=== PATIENT | female | born 1970 | race African-American/Black ===

== ENCOUNTER 2016-10-20 20:22 | Emergency (ER) | payer MEDICAID, OTHER ==
[~2016-10-20] VITALS: Ht 172.7 cm; Wt 76.7 kg
[~2016-10-20 20:22] MED LIST: ASPIRIN81 MG ORAL; CIPRO500 MG PO; COREG6.25 MG ORAL; HYDROCHLOROTHIA25 MG ORAL; IBUPROFEN600 MG ORAL; NITROFURANTOIN100 M2 ORAL; NORCO 5-325 TA1 EACH ORAL; TRAZODONE HCL150 MG ORAL; TRILEPTAL150 MG ORAL; TRILEPTAL600 MG PO; ZANTAC150 MG ORAL
[2016-10-20] MEDS ORDERED: IBUPROFEN600 MG ORAL (21:24)
[2016-10-20] MEDS ORDERED: AMOXICILLIN500 MG ORAL (21:24)
[2016-10-20 21:39] VITALS: BP 138/100
[2016-10-20 21:41] VITALS: BP 138/100
--- NOTE | 2016-10-22 07:33 | Emergency Room Report ---
History of Present Illness General Chief Complaint: Sore Throat Source: Patient Present Illness HPI 46-year-old female presents to ED complaining of sore throat x2 days. Denies fevers or chills. Notes 5/10 pain burning, nonradiating. Worse with swallowing. Denies cough. Denies earache. States two coworkers were recently diagnosed with strep throat. Denies recent travel. No aggravating relieving factors. Denies any other associated symptoms Allergies: Coded Allergies: LISINOPRIL (Verified Allergy, Intermediate, 05/04/16) Patient History Past Medical History: HTN, CVA/TIA Past Surgical History: none Pertinent Family History: none Social History: Denies: alcohol use, drug use, smoking Now: No Immunizations: UTD Reviewed Nursing Documentation: PMH: Agreed, PSxH: Agreed Nursing Documentation-PMH Past Medical History: No History, Except For Hx Cardiac Problems: Yes Hx Hypertension: Yes Hx Diabetes: No Hx Cancer: No Hx Gastrointestinal Problems: No Hx Dialysis: No - KIDNEY STONES Hx Neurological Problems: No Hx Cerebrovascular Accident: Yes - 04/30 Hx Seizures: No Review of Systems All Other Systems: negative except mentioned in HPI Physical Exam Vital Signs Date Time Temp Pulse Resp B/P Pulse Ox O2 Delivery O2 Flow Rate FiO2 10/20/16 21:06 97.5 83 16 139/105 98 Room Air Sp02 EP Interpretation: reviewed, normal General Appearance: no apparent distress, alert, GCS 15, non-toxic Head: normocephalic Eyes: bilateral eye PERRL, bilateral eye normal inspection ENT: TMs + canals normal, pharyngeal erythema Neck: normal inspection Respiratory: chest non-tender, lungs clear, normal breath sounds, speaking full sentences Cardiovascular #1: normal inspection Gastrointestinal: normal inspection Rectal: deferred Genitourinary: no CVA tenderness Musculoskeletal: normal inspection Neurologic: alert, oriented x3, responsive, motor strength/tone normal, sensory intact, speech normal Psychiatric: normal inspection Skin: normal inspection Lymphatic: normal inspection Medical Decision Making Diagnostic Impression: Primary Impression: Pharyngitis Qualified Codes: J02.9 - Acute pharyngitis, unspecified ER Course Hospital Course 46-year-old female presents to ED complaining of sore throat Differential diagnoses include: URI, pharyngitis, otitis media Clinical course Patient placed on stretcher. After initial history, physical exam reveals a young male in no acute distress. Bilateral TM unremarkable. There is pharyngeal erythema w/o tonsillar exudates. No lymphadenopathy. Clinical findings consistent with pharyngitis. Reassurance given Diagnosis - pharyngitis Stable and discharged home with prescriptions for amoxicillin. Instructed to followup with PMD. return to ED if symptoms recur or worsen Last Vital Signs Date Time Temp Pulse Resp B/P Pulse Ox O2 Delivery O2 Flow Rate FiO2 10/20/16 21:41 97.5 68 16 138/100 98 Room Air Status: improved Disposition: HOME, SELF-CARE Condition: Stable Scripts Ibuprofen* (MOTRIN*) 600 Mg Tablet 600 MG ORAL Q8H Y for For Pain, #30 TAB 0 Refills Prov: MIKE WILLIAMSON M.D. 10/20/16 Amoxicillin* (AMOXIL*) 500 Mg Capsule 500 MG ORAL THREE TIMES A DAY, #21 CAP Prov: MIKE WILLIAMSON M.D. 10/20/16 Referrals: [facility]ERR[facility] (PCP) Patient Instructions: Pharyngitis, [id number] MIKE WILLIAMSON M.D. Oct 22, 2016 07:33
== END 2016-10-20 21:43 | disposition home or self-care (01) ==
LOC: EMR 21:20
DX: J02.9 Acute pharyngitis, unspecified (principal); I10 Essential (primary) hypertension; Z86.73 Personal history of transient ischemic attack (TIA), and cerebral infarction without residual deficits; Z88.8 Allergy status to other drugs, medicaments and biological substances
CPT/HCPCS: 99284

== ENCOUNTER 2017-04-20 08:07 | Emergency (ER) | payer OTHER ==
[~2017-04-20] VITALS: Ht 165.1 cm; Wt 88.9 kg
[~2017-04-20 08:07] MED LIST changes: +AMOXICILLIN500 MG ORAL
[2017-04-20] MEDS ORDERED: Morphine Sulfate 4mg/ml Inj IVP ONE (08:45)
[2017-04-20 09:09] LABS: APPEARANCE,URINE SLIGHTLY CLOUDY; KETONES,URINE 1+ (NEGATIVE); LEUKOCYTE ESTERASE ,URINE 2+ (NEGATIVE); NITRITE,URINE POSITIVE (NEGATIVE); PH,URINE 6 (4.5-8.0); PROTEIN,URINE 1+ (NEGATIVE); UROBILINOGEN,URINE 1 MG/DL (0.0-1.0)
[2017-04-20 09:20] LABS: BACTERIA,URINE MANY /HPF; SQUAMOUS EPITHELIAL CELL,UR FEW /LPF (NONE/OCC)
[2017-04-20 09:27] LABS: LYMPHOCYTES % (AUTO) 27.1 % (20.0-45.0); MEAN CORPUSCULAR HGB CONC 33.1 G/DL (32.0-36.0); MEAN CORPUSCULAR VOLUME 94 FL (80-99); MEAN PLATELET VOLUME 6.5 FL (6.5-10.1); MONOCYTES % (AUTO) 3.7 % (1.0-10.0); NEUTROPHILS % (AUTO) 67.2 % (45.0-75.0); PLATELET COUNT 302 K/UL (150-450); RED BLOOD COUNT 4.86 M/UL (4.20-5.40); RED CELL DISTRIBUTION WIDTH 11.3 % (11.6-14.8); WHITE BLOOD COUNT 8.1 K/UL (4.8-10.8)
[2017-04-20 09:40] LABS: ALANINE AMINOTRANSFERASE 54 U/L (3-33); ALBUMIN/GLOBULIN RATIO 1.2 (1.0-2.7); ANION GAP 14 (5-15); ASPARTATE AMINO TRANSFERASE 56 U/L (5-40); CALCIUM 9.6 mg/dL (8.6-10.2); CARBON DIOXIDE 25 mEQ/L (20-30); CHLORIDE 97 mEQ/L (98-107); CREATININE 0.8 mg/dL (0.5-0.9); GLOMERULAR FILTRATION RATE > 60 mL/min (>60); HEMOLYSIS 8; LIPASE 27 U/L (< 60); POTASSIUM 3.9 mEQ/L (3.4-4.9); SODIUM 136 mEQ/L (135-145); TOTAL PROTEIN 7.6 g/dL (6.6-8.7)
[2017-04-20 09:55] LABS: BILIRUBIN,DIRECT 0.3 mg/dL (0.1-0.3)
--- NOTE | 2017-04-20 11:34 | Diagnostic Imaging Report ---
Indication: Abdominal pain Technique: Continuous helical transaxial imaging of the abdomen and pelvis was obtained from the lung bases to the pubic symphysis during intravenous contrast administration. Coronal 2-D reformats were also obtained. Study obtained in a Siemens sensation [address] Total Dose length Product (DLP): 09/20/[address] Dose Index Volume (CTDIvol): 19, 20 mGy Comparison: 07/30/13 Findings: There is mild subsegmental, linear right basal atelectasis noted. Small hiatal hernia is present. The liver is mildly hypodense consistent with fatty infiltration. Fairly extensive scarring of the upper pole the right kidney is again demonstrated with focal loss of cortex and slight dilatation of the right upper pole calyces. Normal appendix is demonstrated. Gallbladder is unremarkable. The spleen and pancreas, adrenal glands appear normal. No free fluid or free air identified. Uterus is present. There is some prominence of the central part of the upper cervix. Please correlate clinically. This could be a small amount of blood or fluid within the endocervical canal or adjacent cervical os. This finding was also seen previously in 2013. Impression: Moderate fatty liver. Low-attenuation focus in the area of endocervical canal. This could be a small amount of fluid or blood within the endocervical canal, a prominent nabothian cyst within the cervical os or other lesion. Finding is unchanged from 2013. Endovaginal ultrasound may be helpful and suggested as a follow up as part of a clinical sample steamer referral and evaluation. Scarring in the upper pole the right kidney unchanged from the last exam. Normal appendix Minimal right basal atelectasis The CT scanner at [facility] is accredited by the [employer] and the scans are performed using dose optimization techniques as appropriate to a performed exam including Automatic Exposure control.
[2017-04-20] MEDS ORDERED: Cephalexin 500mg cap ORAL ONE (11:45)
[2017-04-20] MEDS ORDERED: TRAMADOL HCL50 MG ORAL (12:02)
[2017-04-20] MEDS ORDERED: KEFLEX500 MG ORAL (12:02)
[2017-04-20 12:26] VITALS: BP 138/82
--- NOTE | 2017-04-20 14:31 | Emergency Room Report ---
History of Present Illness General Chief Complaint: Lower Back Pain or Injury Source: Patient Present Illness HPI 47-year-old female presents to ED for evaluation. States for one day she is having abdominal pain. Pain is localized right upper quadrant and left-sided abdomen. Sharp. 9/10. Nonradiating. She has history of kidney stones. Denies dysuria or hematuria. Denies fevers or chills. Eyes nausea or vomiting. No other aggravating or relieving factors. Denies any other associated symptoms Allergies: Coded Allergies: LISINOPRIL (Verified Allergy, Intermediate, 05/04/16) Patient History Past Medical History: CVA/TIA Past Surgical History: none Pertinent Family History: none Social History: Denies: alcohol use, drug use, smoking Last Menstrual Period: 04/13/17 Now: No Immunizations: UTD Reviewed Nursing Documentation: PMH: Agreed, PSxH: Agreed Nursing Documentation-PMH Hx Cardiac Problems: Yes - ID Hx Hypertension: Yes Hx Diabetes: No Hx Cancer: No Hx Gastrointestinal Problems: No Hx Dialysis: No - KIDNEY STONES Hx Neurological Problems: No Hx Cerebrovascular Accident: Yes - 04/30 Hx Seizures: No Review of Systems All Other Systems: negative except mentioned in HPI Physical Exam Vital Signs Date Time Temp Pulse Resp B/P Pulse Ox O2 Delivery O2 Flow Rate FiO2 04/20/17 08:23 98.1 78 16 126/64 97 Room Air Sp02 EP Interpretation: reviewed, normal General Appearance: no apparent distress, alert, GCS 15, non-toxic Head: normocephalic, atraumatic Eyes: bilateral eye PERRL, bilateral eye normal inspection ENT: hearing grossly normal, normal pharynx, no angioedema, normal voice Neck: full range of motion, supple/symm/no masses Respiratory: chest non-tender, lungs clear, normal breath sounds, speaking full sentences Cardiovascular #1: regular rate, rhythm, no edema Cardiovascular #2: 2+ carotid (R), 2+ carotid (L), 2+ radial (R), 2+ radial (L) , 2+ dorsalis pedis (R), 2+ dorsalis pedis (L) Gastrointestinal: normal bowel sounds, soft, non-distended, no guarding, no rebound, tenderness - RUQ, LLQ Rectal: deferred Genitourinary: normal inspection, no CVA tenderness Musculoskeletal: back normal, gait/station normal, normal range of motion, non- tender Neurologic: alert, oriented x3, responsive, motor strength/tone normal, sensory intact, speech normal Psychiatric: judgement/insight normal, memory normal, mood/affect normal, no suicidal/homicidal ideation Reflexes: 3+ bicep (R), 3+ bicep (L), 3+ tricep (R), 3+ tricep (L), 3+ knee (R) , 3+ knee (L) Skin: normal color, no rash, warm/dry, well hydrated Lymphatic: no adenopathy Medical Decision Making Diagnostic Impression: Primary Impression: Fatty liver Additional Impression: uti ER Course Hospital Course 47-year-old F presents to ED with abdominal pain Differential diagnosis includes-appendicitis, cholecystitis, small bowel obstruction, gastritis, Clinical course Patient placed on stretcher. After initial history and physical I ordered labs , IV fluids, pain medications and CT scan Labs - no leukocytosis, electrolytes ok, LFTs normal, UA + bacteria CT scan shows no acute pathology, fatty liver Upon reassessment, patient states pain has improved. Given improvement in symptoms and lack of acute findings, I believe patient can be safely discharged to home. Patient agrees with plan given keflex in ED I feel this is a highly complex case requiring extensive working including EKG/ Rhythm strip, Xray/CT/US, Blood/urine lab work, repeat exams while in ED, and administration of strong opiates/narcotics for pain control, admission to hospital or close patient follow up. Diagnosis - fatty liver, UTI Stable and discharged to home with Rx Keflex, tramadol. Followup with PMD. Return to ED if symptoms recur or worsen Labs Test 04/20/17 08:30 04/20/17 09:00 Urine Color Yellow Urine Appearance Slightly cloudy Urine pH 6 (4.5-8.0) Urine Specific [place] 1.020 (1.005-1.035) Urine Protein 1+ (NEGATIVE) Urine Glucose (UA) Negative (NEGATIVE) Urine Ketones 1+ (NEGATIVE) Urine Occult Blood 2+ (NEGATIVE) Urine Nitrite Positive (NEGATIVE) Urine Bilirubin Negative (NEGATIVE) Urine Urobilinogen 1 MG/DL (0.0-1.0) Urine Leukocyte Esterase 2+ (NEGATIVE) Urine RBC 2-4 /HPF (0 - 2) Urine WBC 5-10 /HPF (0 - 2) Urine Squamous Epithelial Cells Few /LPF (NONE/OCC) Urine Bacteria Many /HPF (NONE) Urine HCG, Qualitative Negative White Blood Count 8.1 K/UL (4.8-10.8) Red Blood Count 4.86 M/UL (4.20-5.40) Hemoglobin 15.1 G/DL (12.0-16.0) Hematocrit 45.5 % (37.0-47.0) Mean Corpuscular Volume 94 FL (80-99) Mean Corpuscular Hemoglobin 31.0 PG (27.0-31.0) Mean Corpuscular Hemoglobin Concent 33.1 G/DL (32.0-36.0) Red Cell Distribution Width 11.3 % (11.6-14.8) Platelet Count 302 K/UL (150-450) Mean Platelet Volume 6.5 FL (6.5-10.1) Neutrophils (%) (Auto) 67.2 % (45.0-75.0) Lymphocytes (%) (Auto) 27.1 % (20.0-45.0) Monocytes (%) (Auto) 3.7 % (1.0-10.0) Eosinophils (%) (Auto) 1.0 % (0.0-3.0) Basophils (%) (Auto) 1.0 % (0.0-2.0) Sodium Level 136 mEQ/L (135-145) Potassium Level 3.9 mEQ/L (3.4-4.9) Chloride Level 97 mEQ/L (98-107) Carbon Dioxide Level 25 mEQ/L (20-30) Anion Gap 14 (5-15) Blood Urea Nitrogen 7 mg/dL (7-23) Creatinine 0.8 mg/dL (0.5-0.9) Estimat Glomerular Filtration Rate > 60 mL/min (>60) Glucose Level 114 mg/dL (74-106) Calcium Level 9.6 mg/dL (8.6-10.2) Total Bilirubin 1.6 mg/dL (0.0-1.2) Direct Bilirubin 0.3 mg/dL (0.1-0.3) Aspartate Amino Transf (AST/SGOT) 56 U/L (5-40) Alanine Aminotransferase (ALT/SGPT) 54 U/L (3-33) Alkaline Phosphatase 56 U/L (35-104) Total Protein 7.6 g/dL (6.6-8.7) Albumin 4.2 g/dL (3.5-5.2) Globulin 3.4 g/dL Albumin/Globulin Ratio 1.2 (1.0-2.7) Lipase 27 U/L (< 60) CT/MRI/US Diagnostic Results CT/MRI/US Diagnostic Results : Imaging Test Ordered: CT A/P Impression fatty liver. no acute process identified Last Vital Signs Date Time Temp Pulse Resp B/P Pulse Ox O2 Delivery O2 Flow Rate FiO2 04/20/17 12:26 81 16 138/82 98 Room Air 04/20/17 09:35 98.0 Status: improved Disposition: HOME, SELF-CARE Condition: Stable Scripts Cephalexin* (KEFLEX*) 500 Mg Capsule 500 MG ORAL Q6H, #28 CAP 0 Refills Prov: MIKE WILLIAMSON M.D. 04/20/17 Tramadol Hcl* (ULTRAM*) 50 Mg Tablet 50 MG ORAL Q6H Y for For Pain, #30 TAB 0 Refills Prov: MIKE WILLIAMSON M.D. 04/20/17 Patient Instructions: Fatty Liver MIKE WILLIAMSON M.D. Apr 20, 2017 14:31
== END 2017-04-20 12:27 | disposition home or self-care (01) ==
LOC: EMR 08:48
DX: K76.0 Fatty (change of) liver, not elsewhere classified (principal); N39.0 Urinary tract infection, site not specified; I10 Essential (primary) hypertension; Z86.73 Personal history of transient ischemic attack (TIA), and cerebral infarction without residual deficits
CPT/HCPCS: 36415; 74177; 80053; 81003; 81025; 82248; 83690; 85025; 87086; 87181; 96374; 99284; J2270; J7040; Q9967; 96360

== ENCOUNTER → 2017-11-12 | Emergency (ER) | payer OTHER ==
[~2017-11-12] VITALS: Ht 167.6 cm; Wt 88.5 kg
[~2017-11-12] MED LIST changes: +Dicyclomine HCl 10mg/5ml oral soln ORAL ONE; +KEFLEX500 MG ORAL; +Ketorolac 30mg Inj IV ONE; +Morphine Sulfate 2mg/ml Inj IVP ONE; +PEPCID20 MG ORAL; +REGLAN10 MG ORAL; +TAMSULOSIN HCL0.4 MG ORAL; +TRAMADOL HCL50 MG ORAL
[2017-11-12 09:00] VITALS: BP 140/80
[2017-11-12 09:00] LABS: APPEARANCE,URINE CLEAR; BILIRUBIN, URINE NEGATIVE (NEGATIVE); COLOR,URINE PALE YELLOW; GLUCOSE, URINE (UA) NEGATIVE (NEGATIVE); KETONES,URINE NEGATIVE (NEGATIVE); LEUKOCYTE ESTERASE ,URINE NEGATIVE (NEGATIVE); NITRITE,URINE NEGATIVE (NEGATIVE); PH,URINE 5 (4.5-8.0); PROTEIN,URINE NEGATIVE (NEGATIVE); UROBILINOGEN,URINE NORMAL MG/DL (0.0-1.0)
--- NOTE | 2017-11-12 09:02 | Emergency Room Report ---
History of Present Illness General Chief Complaint: Abdominal Pain Source: Patient Present Illness HPI [id number] with lower abd pain for 2 weeks. assoc with some nausea and "soft stool." Pain is suprapubic, right lower abdomen. Sharp, constant. Not radiating. 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 had nitrite+ UTI and fatty liver on ED visit in April 2017 History of kidney stones Allergies: Coded Allergies: LISINOPRIL (Verified Allergy, Intermediate, 05/04/16) Patient History Past Medical History: HTN, other - fatty liver Past Surgical History: none Pertinent Family History: none Social History: Denies: smoking, alcohol use, drug use Now: No Immunizations: UTD Reviewed Nursing Documentation: PMH: Agreed, PSxH: Agreed Nursing Documentation-PMH Hx Cardiac Problems: Yes - [place] Hx Hypertension: Yes Hx Diabetes: No Hx Cancer: No Hx Gastrointestinal Problems: No Hx Dialysis: No - KIDNEY STONES Hx Neurological Problems: No Hx Cerebrovascular Accident: Yes - 04/30 Hx Seizures: No Review of Systems All Other Systems: negative except mentioned in HPI Physical Exam Vital Signs Date Time Temp Pulse Resp B/P (MAP) Pulse Ox O2 Delivery O2 Flow Rate FiO2 11/12/17 08:45 98.0 80 13 140/80 98 Room Air 98.1 Sp02 EP Interpretation: reviewed, normal General Appearance: normal inspection, well appearing, no apparent distress, alert, GCS 15, non-toxic, obese Head: normocephalic, atraumatic Eyes: bilateral eye PERRL, bilateral eye EOMI ENT: normal ENT inspection, hearing grossly normal, normal pharynx, no angioedema, normal voice, TMs + canals normal, uvula midline, moist mucus membranes Neck: normal inspection, full range of motion, supple, thyroid normal, no meningismus, no bony tend Respiratory: normal inspection, lungs clear, normal breath sounds, no rhonchi, no respiratory distress, no retraction, no accessory muscle use, no wheezing, speaking full sentences Cardiovascular #1: regular rate, rhythm, no edema, no JVD, normal capillary refill Gastrointestinal: normal inspection, normal bowel sounds, soft, no mass, no peritonitis, non-distended, no guarding, no hernia, no pulsatile mass, other - Mild right LQ and suprapubic ttp Genitourinary: no CVA tenderness Musculoskeletal: normal inspection, back normal, normal range of motion, no calf tenderness, pelvis stable, Pascual's Sign negative Neurologic: normal inspection, alert, oriented x3, responsive, cpr ambulance driver III-XII nml as tested, motor strength/tone normal, cerebellar normal, normal gait, speech normal Psychiatric: normal inspection, judgement/insight normal, mood/affect normal, no suicidal/homicidal ideation, no delusions Skin: normal inspection, normal color, no rash Lymphatic: normal inspection, no adenopathy Medical Decision Making Diagnostic Impression: Primary Impression: Abdominal pain Qualified Codes: R10.30 - Lower abdominal pain, unspecified Additional Impression: Hematuria Qualified Codes: R31.21 - Asymptomatic microscopic hematuria ER Course VSS, afebrile Abd focal ttp RLQ, suprapubic Urine preg negative UA: + blood. few bacteria, 0-2 WBCs Labs: H&H stable. No leukocytosis. Low suspicion for acute bacterial/surgical process given 2 weeks of symptoms, stable vitals, well appearance, no leuks Ultrasound done to eval for renal calculus given hematuria and alleged history of renal stones AND because I and patient wished to avoid further radiation since she was just scanned in April Sono: shows fatty liver - previously seen on CT, and scarring of kidneys, also previously seen. No hydronephrosis or other sign of renal obstruction Was given IV toradol, fluid and bentyl/reglan with mild improvement in symptoms Only felt better after IV morphine Abdomen on serial exam is non-focal Really doubt UTI given no symptoms, few bacteria only on UA and no LE. Reassured patient DC ER course: Patient has remained stable during ED stay. Disposition: Patient is to be discharged to home. Prescriptions given are * Patient is instructed to follow up with their primary care doctor within 5 days. Patient is instructed to follow up with *specialist within 3 days. Strict return precautions discussed with patient such as fever, chills, worsening/severe pain, nausea, vomiting, which may indicate severe illness. Patient verbalizes understanding and agrees with plan. Please note that this Emergency Department Report was dictated using [employer] regulator repairer helper technology software, occasionally this can lead to erroneous entry secondary to interpretation by the dictation equipment Rhythm Strip Diag. Results EP Interpretation: yes Rate: 85 Rhythm: NSR, no PVC's, no ectopy Last Vital Signs Date Time Temp Pulse Resp B/P (MAP) Pulse Ox O2 Delivery O2 Flow Rate FiO2 11/12/17 08:45 98.0 80 13 140/80 98 Room Air 98.1 Status: improved Disposition: HOME, SELF-CARE JOSE ALFREDO DARDEN M.D. Nov 12, 2017 09:02
[2017-11-12 09:52] LABS: BASOPHILS % (AUTO) 1.4 % (0.0-2.0); HEMATOCRIT 43.1 % (37.0-47.0); HEMOGLOBIN 14.4 G/DL (12.0-16.0); LYMPHOCYTES % (AUTO) 31.1 % (20.0-45.0); MEAN CORPUSCULAR VOLUME 92 FL (80-99); MONOCYTES % (AUTO) 5.7 % (1.0-10.0); NEUTROPHILS % (AUTO) 60.8 % (45.0-75.0); PLATELET COUNT 289 K/UL (150-450); RED BLOOD COUNT 4.67 M/UL (4.20-5.40); RED CELL DISTRIBUTION WIDTH 10.9 % (11.6-14.8); WHITE BLOOD COUNT 7.1 K/UL (4.8-10.8)
[2017-11-12 10:03] LABS: ANION GAP 12 mmol/L (5-15); BLOOD UREA NITROGEN 7 mg/dL (7-18); CALCIUM 8.8 MG/DL (8.5-10.1); CARBON DIOXIDE 24 MMOL/L (21-32); CHLORIDE 104 MMOL/L (98-107); CREATININE 0.7 MG/DL (0.55-1.30); SODIUM 140 MMOL/L (136-145)
[2017-11-12 10:08] LABS: ALANINE AMINOTRANSFERASE 49 U/L (12-78); ALBUMIN 3.3 G/DL (3.4-5.0); ALBUMIN/GLOBULIN RATIO 0.8 (1.0-2.7); ALKALINE PHOSPHATASE 55 U/L (46-116); ASPARTATE AMINO TRANSFERASE 42 U/L (15-37); BILIRUBIN,TOTAL 0.7 MG/DL (0.2-1.0)
[2017-11-12 10:32] VITALS: BP 151/75
[2017-11-12 11:41] VITALS: BP 151/75
--- NOTE | 2017-11-13 10:20 | Diagnostic Imaging Report ---
Indication:Abdominal pain Technique: Grayscale and duplex Doppler imaging of the abdomen performed. Comparison: None Findings: Liver is echogenic and prominent measuring about 18 cm. Gallbladder is contracted. Patient is not nothing by mouth. The demonstrated part of the pancreas, aorta and IVC, spleen appear unremarkable. There is no biliary ductal dilatation identified. Doppler evaluation of the main portal vein shows patency. There is the suggestion of scarring in the upper pole of the right kidney. Left kidney is unremarkable. There is no ascites. No hydronephrosis seen. Impression: Hepatomegaly with fatty infiltration. Suggestion of scarring in the upper pole the right kidney. Gallbladder contracted
== END | disposition home or self-care (01) ==
LOC: EMR 09:00
DX: R10.31 Right lower quadrant pain (principal); R31.9 Hematuria, unspecified; I10 Essential (primary) hypertension; Z86.73 Personal history of transient ischemic attack (TIA), and cerebral infarction without residual deficits; I25.2 Old myocardial infarction; Z88.8 Allergy status to other drugs, medicaments and biological substances; K76.0 Fatty (change of) liver, not elsewhere classified; R16.0 Hepatomegaly, not elsewhere classified
CPT/HCPCS: 36415; 76700; 80053; 81003; 81025; 83690; 85025; 96374; 96375; 99284; J1885; J2270; J2405; S0028

== ENCOUNTER 2017-11-13 09:31 | Emergency (ER) | payer OTHER ==
[~2017-11-13] VITALS: Ht 165.1 cm; Wt 86.2 kg
[~2017-11-13 09:31] MED LIST changes: -Dicyclomine HCl 10mg/5ml oral soln ORAL ONE; -Ketorolac 30mg Inj IV ONE; -Morphine Sulfate 2mg/ml Inj IVP ONE; -TAMSULOSIN HCL0.4 MG ORAL
[2017-11-13 09:45] VITALS: BP 180/84
[2017-11-13 10:10] VITALS: BP 160/84
[2017-11-13 10:21] LABS: BASOPHILS % (AUTO) 1.5 % (0.0-2.0); EOSINOPHILS % (AUTO) 1.3 % (0.0-3.0); HEMOGLOBIN 15.1 G/DL (12.0-16.0); LYMPHOCYTES % (AUTO) 33.3 % (20.0-45.0); MEAN CORPUSCULAR VOLUME 93 FL (80-99); NEUTROPHILS % (AUTO) 58.9 % (45.0-75.0); PLATELET COUNT 294 K/UL (150-450); RED BLOOD COUNT 4.87 M/UL (4.20-5.40); RED CELL DISTRIBUTION WIDTH 11.1 % (11.6-14.8); WHITE BLOOD COUNT 6.8 K/UL (4.8-10.8)
[2017-11-13 10:24] LABS: APPEARANCE,URINE CLEAR; BILIRUBIN, URINE NEGATIVE (NEGATIVE); COLOR,URINE PALE YELLOW; GLUCOSE, URINE (UA) NEGATIVE (NEGATIVE); KETONES,URINE NEGATIVE (NEGATIVE); LEUKOCYTE ESTERASE ,URINE NEGATIVE (NEGATIVE); NITRITE,URINE NEGATIVE (NEGATIVE); PH,URINE 5 (4.5-8.0); PROTEIN,URINE 2+ (NEGATIVE); UROBILINOGEN,URINE NORMAL MG/DL (0.0-1.0)
--- NOTE | 2017-11-13 10:31 | Emergency Room Report ---
History of Present Illness General Chief Complaint: Abdominal Pain Source: Patient Present Illness HPI 47 F, no significant past medical history, presenting with right-sided abdominal pain for one and a half weeks. Patient states that she has had the pain come and go. No nausea vomiting or diarrhea. No constipation. No abnormal vaginal bleeding or discharge. No risk of having an STD. Patient states that she came to the emergency room yesterday, had labs and sonogram done , was sent home. Patient now back still complaining of pain. States that she tried to get up and with her doctor but it takes a long time to get an appointment. Allergies: Coded Allergies: LISINOPRIL (Verified Allergy, Intermediate, 05/04/16) Patient History Past Medical History: see triage record Past Surgical History: none Pertinent Family History: none Last Menstrual Period: Oct 29 Now: No : 6 Para: 5 Reviewed Nursing Documentation: PMH: Agreed, PSxH: Agreed Nursing Documentation-PMH Past Medical History: No History, Except For Hx Hypertension: Yes Hx Diabetes: No Hx Cancer: No Hx Gastrointestinal Problems: No Hx Dialysis: No - KIDNEY STONES Hx Neurological Problems: No Hx Cerebrovascular Accident: Yes - 04/30 Hx Seizures: No Physical Exam Vital Signs Date Time Temp Pulse Resp B/P (MAP) Pulse Ox O2 Delivery O2 Flow Rate FiO2 11/13/17 09:34 98.1 71 16 180/84 97 Room Air 98.1 Sp02 EP Interpretation: reviewed, normal General Appearance: alert, GCS 15, non-toxic, mild distress Head: normocephalic, atraumatic Eyes: bilateral eye normal inspection, bilateral eye PERRL, bilateral eye EOMI ENT: normal ENT inspection, normal pharynx, normal voice, moist mucus membranes Neck: normal inspection, full range of motion, supple Respiratory: normal inspection, lungs clear, normal breath sounds, no respiratory distress, no retraction, no wheezing, speaking full sentences, chest symmetrical Cardiovascular #1: normal inspection, regular rate, rhythm, normal capillary refill Cardiovascular #2: 2+ radial (R), 2+ radial (L) Gastrointestinal: soft, non-distended, no guarding, other - very mild RLQ tenderness no guarding or rebound. normal BS Musculoskeletal: normal inspection, back normal, normal range of motion, non- tender Neurologic: normal inspection, alert, oriented x3, responsive, motor strength/ tone normal, sensory intact, normal gait, speech normal Psychiatric: normal inspection, judgement/insight normal, memory normal Skin: normal inspection, normal color, no rash, warm/dry, well hydrated, normal turgor Medical Decision Making Diagnostic Impression: Primary Impression: Abdominal pain Additional Impressions: Nephrolithiasis Cystitis ER Course 47-year-old female, abdominal pain for one and a half weeks, worse for the last 2 days Patient was seen yesterday, had labs drawn, a sonogram that was negative Differential Diagnosis: Gastritis, gastroenteritis, cholecystitis, appendicitis, diverticulitis, UTI/ pyelo Ovarian pathology such as ovarian cyst, versus uterine fibroids Not very concerned that patient is having ovarian torsion, and symptoms for 2 weeks Plan: Basic labs, ua CT abdopelvis ER course: Patient has remained stable during ED stay. CT abdomen pelvis performed - stones non obstructing in R kidney also with cystitis on CT --- occassional bacteria on UA pt has been stable can be DC home on meds and urology fu Disposition: Patient is to be discharged to home. Patient is instructed to follow up with their primary care doctor within 5 days. Patient is instructed to follow up with urology in 1 week Strict return precautions discussed with patient such as fever, chills, worsening/severe abdominal pain, nausea, vomiting, black or bloody stools, which may indicate severe illness. Patient verbalizes understanding and agrees with plan. Please note that this Emergency Department Report was dictated using vLexback end developer technology software, occasionally this can lead to erroneous entry secondary to interpretation by the dictation equipment Rhythm Strip EP Interpretation: Yes Rate: 80 Rhythm: NSR, no PVCs, no ectopy Laboratory Tests Test 11/13/17 10:00 11/13/17 10:01 Urine Color Pale yellow Urine Appearance Clear Urine pH 5 (4.5-8.0) Urine Specific [place] 1.020 (1.005-1.035) Urine Protein 2+ (NEGATIVE) H Urine Glucose (UA) Negative (NEGATIVE) Urine Ketones Negative (NEGATIVE) Urine Occult Blood Negative (NEGATIVE) Urine Nitrite Negative (NEGATIVE) Urine Bilirubin Negative (NEGATIVE) Urine Urobilinogen Normal MG/DL (0.0-1.0) Urine Leukocyte Esterase Negative (NEGATIVE) Urine RBC 0-2 /HPF (0 - 2) Urine WBC 0-2 /HPF (0 - 2) Urine Squamous Epithelial Cells Moderate /LPF (NONE/OCC) H Urine Bacteria Occasional /HPF (NONE) Urine HCG, Qualitative Negative White Blood Count 6.8 K/UL (4.8-10.8) Red Blood Count 4.87 M/UL (4.20-5.40) Hemoglobin 15.1 G/DL (12.0-16.0) Hematocrit 45.0 % (37.0-47.0) Mean Corpuscular Volume 93 FL (80-99) Mean Corpuscular Hemoglobin 31.0 PG (27.0-31.0) Mean Corpuscular Hemoglobin Concent 33.5 G/DL (32.0-36.0) Red Cell Distribution Width 11.1 % (11.6-14.8) L Platelet Count 294 K/UL (150-450) Mean Platelet Volume 6.7 FL (6.5-10.1) Neutrophils (%) (Auto) 58.9 % (45.0-75.0) Lymphocytes (%) (Auto) 33.3 % (20.0-45.0) Monocytes (%) (Auto) 5.0 % (1.0-10.0) Eosinophils (%) (Auto) 1.3 % (0.0-3.0) Basophils (%) (Auto) 1.5 % (0.0-2.0) Sodium Level 138 MMOL/L (136-145) Potassium Level 4.1 MMOL/L (3.5-5.1) Chloride Level 102 MMOL/L (98-107) Carbon Dioxide Level 25 MMOL/L (21-32) Anion Gap 11 mmol/L (5-15) Blood Urea Nitrogen 9 mg/dL (7-18) Creatinine 0.8 MG/DL (0.55-1.30) Estimate Glomerular Filtration Rate > 60 mL/min (>60) Glucose Level 92 MG/DL (74-106) Calcium Level 9.2 MG/DL (8.5-10.1) Total Bilirubin 0.8 MG/DL (0.2-1.0) Aspartate Amino Transferase (AST) 41 U/L (15-37) H Alanine Aminotransferase (ALT) 52 U/L (12-78) Alkaline Phosphatase 68 U/L (46-116) Total Protein 8.1 G/DL (6.4-8.2) Albumin 3.6 G/DL (3.4-5.0) Globulin 4.5 g/dL Albumin/Globulin Ratio 0.8 (1.0-2.7) L CT/MRI/US Diagnostic Results CT/MRI/US Diagnostic Results : Imaging Test Ordered: CT abdo pelvis Impression Findings: Small hiatal hernia is present. There is minimal right basilar atelectasis. The liver is hypodense consistent with fatty infiltration. Gallbladder is contracted. Spleen is unremarkable. The pancreas is unremarkable. Adrenal glands are unremarkable. There is irregularity and atrophy of the upper pole the right kidney as well as the anterior mid pole consistent with scarring. There are calcifications in the right kidney likely small nonobstructive stones the level of the calyces. There is no hydronephrosis. Similar findings noted previously. The appendix is identified and appears normal. There is slight thickening of the urinary bladder wall suspected. Uterus is mildly heterogeneous. There is no free fluid, free air or evidence of bowel obstruction. IMPRESSION: Moderate fatty infiltration of the liver. Multiple nonobstructive stones within the right kidney which show areas of scarring. Suggestion of mild thickening of the wall of the urinary bladder. Please correlate for cystitis. Normal appendix Small hiatal hernia Minimal right basal atelectasis. Last Vital Signs Date Time Temp Pulse Resp B/P (MAP) Pulse Ox O2 Delivery O2 Flow Rate FiO2 11/13/17 10:10 98.1 16 160/84 97 Room Air 98.1 11/13/17 09:34 71 Disposition: HOME, SELF-CARE Condition: Improved Scripts Ibuprofen* (MOTRIN*) 600 Mg Tablet 600 MG ORAL Q6H Y for For Pain, #30 TAB Prov: Retino,Clairose M.D. 11/13/17 Cephalexin* (KEFLEX*) 500 Mg Capsule 500 MG ORAL Q6H, #28 CAP 0 Refills Prov: Retino,Clairose M.D. 11/13/17 Tamsulosin Hcl (TAMSULOSIN HCL*) 0.4 Mg Cap.er.24h 0.4 MG ORAL BEDTIME for 7 Days, #7 CAP Prov: Retino,Clairose M.D. 11/13/17 Referrals: [facility],REFERRING (PCP) Patient Instructions: Abdominal Pain, Adult, Kidney Stones, [id number], Urinary Tract Infection, [id number] Retino,Johan Bardales Nov 13, 2017 10:31
[2017-11-13 10:43] LABS: ANION GAP 11 mmol/L (5-15); BLOOD UREA NITROGEN 9 mg/dL (7-18); CALCIUM 9.2 MG/DL (8.5-10.1); CARBON DIOXIDE 25 MMOL/L (21-32); CHLORIDE 102 MMOL/L (98-107); CREATININE 0.8 MG/DL (0.55-1.30); POTASSIUM 4.1 MMOL/L (3.5-5.1); SODIUM 138 MMOL/L (136-145)
[2017-11-13 10:48] LABS: ALANINE AMINOTRANSFERASE 52 U/L (12-78); ALBUMIN 3.6 G/DL (3.4-5.0); ALBUMIN/GLOBULIN RATIO 0.8 (1.0-2.7); ALKALINE PHOSPHATASE 68 U/L (46-116); ASPARTATE AMINO TRANSFERASE 41 U/L (15-37); BILIRUBIN,TOTAL 0.8 MG/DL (0.2-1.0)
[2017-11-13] MEDS ORDERED: Ketorolac 30mg Inj IV ONE (11:15)
--- NOTE | 2017-11-13 11:26 | Diagnostic Imaging Report ---
Indication: Abdominal pain Technique: Continuous helical transaxial imaging of the abdomen and pelvis was obtained from the lung bases to the pubic symphysis during intravenous contrast administration. Coronal 2-D reformats were also obtained. Study obtained in a Siemens sensation [address] Automatic Exposure Control was utilized. Total Dose length Product (DLP): 966.[address] Dose Index Volume (CTDIvol): 18.4 mGy Comparison: 04/20/2017 Findings: Small hiatal hernia is present. There is minimal right basilar atelectasis. The liver is hypodense consistent with fatty infiltration. Gallbladder is contracted. Spleen is unremarkable. The pancreas is unremarkable. Adrenal glands are unremarkable. There is irregularity and atrophy of the upper pole the right kidney as well as the anterior mid pole consistent with scarring. There are calcifications in the right kidney likely small nonobstructive stones the level of the calyces. There is no hydronephrosis. Similar findings noted previously. The appendix is identified and appears normal. There is slight thickening of the urinary bladder wall suspected. Uterus is mildly heterogeneous. There is no free fluid, free air or evidence of bowel obstruction. IMPRESSION: Moderate fatty infiltration of the liver. Multiple nonobstructive stones within the right kidney which show areas of scarring. Suggestion of mild thickening of the wall of the urinary bladder. Please correlate for cystitis. Normal appendix Small hiatal hernia Minimal right basal atelectasis. [place] [facility] [place] [employer] and the scans are performed using dose optimization techniques as appropriate to a performed exam including Automatic Exposure control.
[2017-11-13] MEDS ORDERED: IBUPROFEN600 MG ORAL (11:32)
[2017-11-13] MEDS ORDERED: KEFLEX500 MG ORAL (11:32)
[2017-11-13] MEDS ORDERED: TAMSULOSIN HCL0.4 MG ORAL (11:32)
[2017-11-13 11:44] VITALS: BP 143/77
== END 2017-11-13 11:53 | disposition home or self-care (01) ==
LOC: EMR 10:15
DX: R10.9 Unspecified abdominal pain (principal); N20.0 Calculus of kidney; K76.0 Fatty (change of) liver, not elsewhere classified; K44.9 Diaphragmatic hernia without obstruction or gangrene
CPT/HCPCS: 36415; 74177; 80053; 81001; 81025; 85025; 96374; 96375; 99284; J1885; J2405; Q9967

== ENCOUNTER 2019-01-09 08:40 | Emergency (ER) | payer SELFPAY ==
[~2019-01-09] VITALS: Ht 165.1 cm; Wt 108.9 kg
[~2019-01-09 08:40] MED LIST changes: +TAMSULOSIN HCL0.4 MG ORAL
[2019-01-09 09:00] VITALS: BP 158/91
--- NOTE | 2019-01-09 09:01 | NUR ---
ED Nurse Note:pt. came with right abd pain since this morning, A/Ox4 ambulatory with steady gait, seen by ER
[2019-01-09] MEDS ORDERED: Morphine Sulfate 4mg/ml Inj (IV USE ONLY) IVP ONE (09:15)
--- NOTE | 2019-01-09 09:26 | NUR ---
ED Nurse Note:blood and urine sent to labs and given IV fluids and pain meds
[2019-01-09 09:36] LABS: BASOPHILS % (AUTO) 1.4 % (0.0-2.0); EOSINOPHILS % (AUTO) 1.2 % (0.0-3.0); HEMOGLOBIN 14.1 G/DL (12.0-16.0); LYMPHOCYTES % (AUTO) 30.8 % (20.0-45.0); MEAN CORPUSCULAR VOLUME 91 FL (80-99); MONOCYTES % (AUTO) 5.8 % (1.0-10.0); NEUTROPHILS % (AUTO) 60.8 % (45.0-75.0); PLATELET COUNT 273 K/UL (150-450); RED BLOOD COUNT 4.62 M/UL (4.20-5.40); RED CELL DISTRIBUTION WIDTH 11.8 % (11.6-14.8); WHITE BLOOD COUNT 7.5 K/UL (4.8-10.8)
[2019-01-09 09:40] LABS: APPEARANCE,URINE SLIGHTLY CLOUDY; BILIRUBIN, URINE NEGATIVE (NEGATIVE); GLUCOSE, URINE (UA) NEGATIVE (NEGATIVE); KETONES,URINE NEGATIVE (NEGATIVE); LEUKOCYTE ESTERASE ,URINE 1+ (NEGATIVE); NITRITE,URINE NEGATIVE (NEGATIVE); PH,URINE 6.5 (4.5-8.0); PROTEIN,URINE 2+ (NEGATIVE); UROBILINOGEN,URINE NORMAL MG/DL (0.0-1.0)
[2019-01-09 09:41] LABS: COLOR,URINE RED
[2019-01-09] MEDS ORDERED: Ketorolac 30mg Inj IV ONE (10:00)
[2019-01-09 10:01] LABS: ANION GAP 8 mmol/L (5-15); BLOOD UREA NITROGEN 8 mg/dL (7-18); CALCIUM 8.6 MG/DL (8.5-10.1); CARBON DIOXIDE 26 MMOL/L (21-32); CHLORIDE 104 MMOL/L (98-107); CREATININE 0.7 MG/DL (0.55-1.30); POTASSIUM 3.9 MMOL/L (3.5-5.1); SODIUM 138 MMOL/L (136-145)
[2019-01-09 10:11] LABS: ALANINE AMINOTRANSFERASE 61 U/L (12-78); ALBUMIN 3.2 G/DL (3.4-5.0); ALBUMIN/GLOBULIN RATIO 0.8 (1.0-2.7); ALKALINE PHOSPHATASE 53 U/L (46-116); ASPARTATE AMINO TRANSFERASE 49 U/L (15-37); BILIRUBIN,TOTAL 1.4 MG/DL (0.2-1.0)
--- NOTE | 2019-01-09 10:24 | Diagnostic Imaging Report ---
Indication: Right-sided abdominal pain Technique: Spiral acquisitions obtained through the abdomen and pelvis. No oral contrast utilized, per emergency room physician request No IV contrast utilized, per emergency room physician request.. Multiplanar reconstructions were generated. Total dose length product 902.06 mGycm. CTDIvol(s) 18.16 mGy. Dose reduction achieved using automated exposure control Comparison: 11/13/2019 18-20 03/07/2018 Findings: Numerous right renal collecting system calculi are demonstrated, perhaps slightly more numerous than previously, measuring up to 4 mm in diameter. No definite ureteral calculi currently, and no hydroureter. There is very mild hydronephrosis on the right, but this is unchanged from the prior study. No left renal or ureteral calculi, hydronephrosis, or hydroureter. Lack of IV contrast limits assessment of the renal parenchyma. No gross renal parenchymal mass or cyst demonstrated. Lack of IV contrast limits assessment of the other solid organs. The liver is diffusely hypoattenuating, consistent with fatty change. No focal abnormality. The gallbladder, bile ducts, pancreas, spleen, adrenals are unremarkable. No retroperitoneal or mesenteric mass or adenopathy. No pelvic mass or adenopathy. Uterus and ovaries are unremarkable. The appendix is normal. There are equivocally transverse colonic diverticula. No evidence of diverticulitis. No small bowel distention. No free or loculated intraperitoneal gas or fluid is evident. The included lung bases are clear. The bones are unremarkable except for a mixed attenuation lesion in the right iliac bone which is unchanged.. Impression: Numerous right renal collecting system calculi, also previously demonstrated. There is very mild right hydronephrosis, without evidence of ureteral obstructing stone. This is unchanged from the previous exam and likely baseline for this patient. Fatty liver Questionable colonic diverticulosis The CT scanner at [facility] is accredited by the [employer] and the scans are performed using protocols designed to limit radiation exposure to as low as reasonably achievable to attain images of sufficient resolution adequate for diagnostic evaluation.
--- NOTE | 2019-01-09 10:31 | Emergency Room Report ---
History of Present Illness General Chief Complaint: Abdominal Pain Source: Patient Present Illness HPI 48-year-old female presents ED for evaluation. Presenting to ED complaining of right-sided flank pain. Started around 3 AM. Sudden onset. Throbbing, 9 out of 10, nonradiating. States that her urine is dark. States that she was here once before for similar presentation. Believes that she may have had kidney stones. Denies fevers or chills. Denies chest pain or shortness of breath. No other aggravating relieving factors. Denies any other associated symptoms Allergies: Coded Allergies: LISINOPRIL (Verified Allergy, Intermediate, 05/04/16) Patient History Past Medical History: CVA/TIA Past Surgical History: none Pertinent Family History: none Social History: Denies: smoking, alcohol use, drug use Now: No Immunizations: UTD Reviewed Nursing Documentation: PMH: Agreed; PSxH: Agreed Nursing Documentation-PMH Hx Hypertension: Yes Hx Diabetes: No Hx Cancer: No Hx Gastrointestinal Problems: No Hx Dialysis: No - KIDNEY STONES Hx Neurological Problems: No Hx Cerebrovascular Accident: Yes - 04/30 Hx Seizures: No Review of Systems All Other Systems: negative except mentioned in HPI Physical Exam Vital Signs Date Time Temp Pulse Resp B/P (MAP) Pulse Ox O2 Delivery O2 Flow Rate FiO2 01/09/19 08:43 98.2 71 19 158/91 98 Room Air Sp02 EP Interpretation: reviewed, normal General Appearance: no apparent distress, alert, GCS 15, non-toxic, obese Head: normocephalic, atraumatic Eyes: bilateral eye normal inspection, bilateral eye PERRL ENT: hearing grossly normal, normal pharynx, no angioedema, normal voice Neck: full range of motion, supple/symm/no masses Respiratory: chest non-tender, lungs clear, normal breath sounds, speaking full sentences Cardiovascular #1: regular rate, rhythm, no edema Cardiovascular #2: 2+ carotid (R), 2+ carotid (L), 2+ radial (R), 2+ radial (L) , 2+ dorsalis pedis (R), 2+ dorsalis pedis (L) Gastrointestinal: normal bowel sounds, soft, non-distended, no guarding, no rebound, tenderness - R sided Rectal: deferred Genitourinary: normal inspection, CVA tenderness (R) Musculoskeletal: back normal, gait/station normal, normal range of motion, non- tender Neurologic: alert, oriented x3, responsive, motor strength/tone normal, sensory intact, speech normal Psychiatric: judgement/insight normal, memory normal, mood/affect normal, no suicidal/homicidal ideation Reflexes: 3+ bicep (R), 3+ bicep (L), 3+ tricep (R), 3+ tricep (L), 3+ knee (R) , 3+ knee (L) Skin: normal color, no rash, warm/dry, well hydrated Lymphatic: no adenopathy Medical Decision Making Diagnostic Impression: Primary Impression: kidney stone ER Course Hospital Course 48-year-old F presents to ED with R flank pain Differential diagnosis includes-appendicitis, cholecystitis, kidney stone, pyelonephritis Clinical course Patient placed on stretcher. After initial history and physical I ordered labs , IV fluids, pain medications and CT scan Labs - no leukocytosis, electrolytes ok, LFTs normal, UA - hematuria, no UTI CT scan shows multiple stones in the right kidney, nonobstructing. No ureteral stone. No perinephric stranding Discussed findings with patient. There is no obstructing stone. No renal insufficiency. No leukocytosis or fever. Patient can be safely discharged to home. We will provide pain medications, Zofran, Flomax. I'll also provide urology referrals. safe for discharge close outpatient follow-up I feel this is a highly complex case requiring extensive working including EKG/ Rhythm strip, Xray/CT/US, Blood/urine lab work, repeat exams while in ED, and administration of strong opiates/narcotics for pain control, admission to hospital or close patient follow up. Diagnosis - kidney stone Stable and discharged to home. Followup with PMD/urology. Return to ED if symptoms recur or worsen Labs Test 01/09/19 09:10 White Blood Count 7.5 K/UL (4.8-10.8) Red Blood Count 4.62 M/UL (4.20-5.40) Hemoglobin 14.1 G/DL (12.0-16.0) Hematocrit 42.0 % (37.0-47.0) Mean Corpuscular Volume 91 FL (80-99) Mean Corpuscular Hemoglobin 30.5 PG (27.0-31.0) Mean Corpuscular Hemoglobin Concent 33.6 G/DL (32.0-36.0) Red Cell Distribution Width 11.8 % (11.6-14.8) Platelet Count 273 K/UL (150-450) Mean Platelet Volume 5.8 FL (6.5-10.1) Neutrophils (%) (Auto) 60.8 % (45.0-75.0) Lymphocytes (%) (Auto) 30.8 % (20.0-45.0) Monocytes (%) (Auto) 5.8 % (1.0-10.0) Eosinophils (%) (Auto) 1.2 % (0.0-3.0) Basophils (%) (Auto) 1.4 % (0.0-2.0) Urine Color Red Urine Appearance Slightly cloudy Urine pH 6.5 (4.5-8.0) Urine Specific [place] 1.015 (1.005-1.035) Urine Protein 2+ (NEGATIVE) Urine Glucose (UA) Negative (NEGATIVE) Urine Ketones Negative (NEGATIVE) Urine Blood 5+ (NEGATIVE) Urine Nitrite Negative (NEGATIVE) Urine Bilirubin Negative (NEGATIVE) Urine Urobilinogen Normal MG/DL (0.0-1.0) Urine Leukocyte Esterase 1+ (NEGATIVE) Urine RBC Tntc /HPF (0 - 2) Urine WBC 0-2 /HPF (0 - 2) Urine Squamous Epithelial Cells Few /LPF (NONE/OCC) Urine Bacteria Few /HPF (NONE) Urine HCG, Qualitative Negative (NEGATIVE) Sodium Level 138 MMOL/L (136-145) Potassium Level 3.9 MMOL/L (3.5-5.1) Chloride Level 104 MMOL/L (98-107) Carbon Dioxide Level 26 MMOL/L (21-32) Anion Gap 8 mmol/L (5-15) Blood Urea Nitrogen 8 mg/dL (7-18) Creatinine 0.7 MG/DL (0.55-1.30) Estimat Glomerular Filtration Rate > 60 mL/min (>60) Glucose Level 106 MG/DL (74-106) Calcium Level 8.6 MG/DL (8.5-10.1) Total Bilirubin 1.4 MG/DL (0.2-1.0) Aspartate Amino Transf (AST/SGOT) 49 U/L (15-37) Alanine Aminotransferase (ALT/SGPT) 61 U/L (12-78) Alkaline Phosphatase 53 U/L (46-116) Total Protein 7.0 G/DL (6.4-8.2) Albumin 3.2 G/DL (3.4-5.0) Globulin 3.8 g/dL Albumin/Globulin Ratio 0.8 (1.0-2.7) Lipase 112 U/L (73-393) CT/MRI/US Diagnostic Results CT/MRI/US Diagnostic Results : Imaging Test Ordered: CT A/P Impression Findings: Numerous right renal collecting system calculi are demonstrated, perhaps slightly more numerous than previously, measuring up to 4 mm in diameter. No definite ureteral calculi currently, and no hydroureter. There is very mild hydronephrosis on the right, but this is unchanged from the prior study. No left renal or ureteral calculi, hydronephrosis, or hydroureter. Lack of IV contrast limits assessment of the renal parenchyma. No gross renal parenchymal mass or cyst demonstrated. Lack of IV contrast limits assessment of the other solid organs. The liver is diffusely hypoattenuating, consistent with fatty change. No focal abnormality. The gallbladder, bile ducts, pancreas, spleen, adrenals are unremarkable. No retroperitoneal or mesenteric mass or adenopathy. No pelvic mass or adenopathy. Uterus and ovaries are unremarkable. The appendix is normal. There are equivocally transverse colonic diverticula. No evidence of diverticulitis. No small bowel distention. No free or loculated intraperitoneal gas or fluid is evident. The included lung bases are clear. The bones are unremarkable except for a mixed attenuation lesion in the right iliac bone which is unchanged.. Last Vital Signs Date Time Temp Pulse Resp B/P (MAP) Pulse Ox O2 Delivery O2 Flow Rate FiO2 01/09/19 09:55 98.2 01/09/19 09:00 71 19 158/91 98 Room Air Status: improved Disposition: HOME, SELF-CARE Condition: Stable Scripts Hydrocodone Bit/Acetaminophen 5-325* (NORCO 5-325*) 1 Each Tablet 1 TAB ORAL Q6H PRN for For Pain, #10 TAB 0 Refills Prov: Basilio Temple MD 01/09/19 Ondansetron Odt* (ZOFRAN ODT*) 4 Mg Tab.rapdis 4 MG BC EVERY 6 HOURS PRN for Nausea & Vomiting, #20 TAB 0 Refills Prov: Basilio Temple MD 01/09/19 Tamsulosin HCl (Flomax) 0.4 Mg Cap.er.24h 0.4 MG ORAL DAILY, #10 CAP Prov: Basilio Temple MD 01/09/19 Ibuprofen* (MOTRIN*) 600 Mg Tablet 600 MG ORAL Q8H PRN for For Pain, #30 TAB 0 Refills Prov: Basilio Temple MD 01/09/19 Referrals: NOT CHOSEN [facility]/,REFERRING (PCP) Basilio Temple MD Jan 09, 2019 10:31
[2019-01-09 10:43] LABS: BILIRUBIN,DIRECT 0.3 MG/DL (0.0-0.3)
[2019-01-09] MEDS ORDERED: NORCO 5-325 TA1 EACH ORAL (12:04)
[2019-01-09] MEDS ORDERED: ONDANSETRON ODT4 MG BC (12:04)
[2019-01-09] MEDS ORDERED: IBUPROFEN600 MG ORAL (12:04)
[2019-01-09] MEDS ORDERED: FLOMAX0.4 MG ORAL (12:04)
[2019-01-09 12:11] VITALS: BP 145/82
[2019-01-09 12:12] VITALS: BP 145/82
--- NOTE | 2019-01-09 12:12 | NUR ---
ER DISCHARGE NOTE: Patient is cleared to be discharged per ERMD, pt is aox4, on room air, with stable vital signs. pt was given dc and prescription instructions, pt was able to verbalize understanding, pt id band and iv site removed without complications. pt is able to ambulate with steady gait. pt took all belongings.
== END 2019-01-09 12:14 | disposition home or self-care (01) ==
LOC: EMR 09:39
DX: N20.0 Calculus of kidney (principal); Z88.8 Allergy status to other drugs, medicaments and biological substances; Z86.73 Personal history of transient ischemic attack (TIA), and cerebral infarction without residual deficits; I10 Essential (primary) hypertension; E66.9 Obesity, unspecified; K57.90 Diverticulosis of intestine, part unspecified, without perforation or abscess without bleeding; N13.2 Hydronephrosis with renal and ureteral calculous obstruction; K76.0 Fatty (change of) liver, not elsewhere classified
CPT/HCPCS: 36415; 74176; 80053; 81003; 81025; 82248; 83690; 85025; 96361; 96374; 96375; 99284; J1885; J2270; J2405

== ENCOUNTER 2019-12-11 20:01 | Emergency (ER) | payer SELFPAY ==
[~2019-12-11] VITALS: Ht 165.1 cm; Wt 81.6 kg
[~2019-12-11 20:01] MED LIST changes: +ALBUTEROL SULF8.5 GM INH; +FLOMAX0.4 MG ORAL; +ONDANSETRON ODT4 MG BC
[2019-12-11 20:05] VITALS: BP 162/96
--- NOTE | 2019-12-11 20:05 | NUR ---
ED Nurse Note: Pt ambulated into ED from home CO SOB and severe cough x 1-2 months. Pt stated that she has recently been [place] [facility] [place] with no resolve. ERMD at bedside.
--- NOTE | 2019-12-11 20:09 | NUR ---
ED Nurse Note: xray at bedside
--- NOTE | 2019-12-11 20:10 | NUR ---
ED Nurse Note: All medications administered, pt tolerated well no ss of distress noted. No adverse reactions noted.
--- NOTE | 2019-12-11 20:31 | NUR ---
ED Nurse Note: Rt at bedside
[2019-12-11] MEDS: Albuterol ud Inhalation HHN SCH ×3 (20:33→20:59)
[2019-12-11] MEDS: Ipratropium 0.02% Inh Soln 2.5ml UD HHN SCH ×3 (20:33→20:58)
--- NOTE | 2019-12-11 20:38 | Diagnostic Imaging Report ---
Indication: Dyspnea Comparison: 10/14/2019 A single view chest radiograph was obtained. Findings: Cardiomediastinal appearance is within normal limits for age. The lungs are clear. Pulmonary vascularity is appropriate. The diaphragmatic contour is smooth and costophrenic angles are sharp. No pleural effusions are identified. The bones are unremarkable. Impression: No acute findings
--- NOTE | 2019-12-11 21:00 | NUR ---
ED Nurse Note: instrumentation technologist at bedside for ekg
--- NOTE | 2019-12-11 21:10 | NUR ---
Note dustin in EDM - 12/11/19 at 2221 by MIKE ED Nurse Note: Breathing tx completed; rt left bedside. PT in stable condition no ss of distress noted. no adverse reactions noted.
--- NOTE | 2019-12-11 21:12 | NUR ---
ED Nurse Note: All blood work drawn and sent to lab; flu swab sent to lab.
--- NOTE | 2019-12-11 21:13 | NUR ---
ED Nurse Note: IVF initiated, pt tolerated well. no ss of distress noted. no adverse reactions noted.
[2019-12-11 21:32] LABS: BASOPHILS % (AUTO) 2.1 % (0.0-2.0); EOSINOPHILS % (AUTO) 2.4 % (0.0-3.0); HEMATOCRIT 49.9 % (37.0-47.0); LYMPHOCYTES % (AUTO) 39.3 % (20.0-45.0); MEAN CORPUSCULAR VOLUME 94 FL (80-99); MONOCYTES % (AUTO) 5.3 % (1.0-10.0); NEUTROPHILS % (AUTO) 50.9 % (45.0-75.0); PLATELET COUNT 278 K/UL (150-450); RED CELL DISTRIBUTION WIDTH 12.5 % (11.6-14.8); WHITE BLOOD COUNT 10.8 K/UL (4.8-10.8)
--- NOTE | 2019-12-11 21:35 | NUR ---
ED Nurse Note: Breathing tx completed; rt left bedside. PT in stable condition no ss of distress noted. no adverse reactions noted.
--- NOTE | 2019-12-11 21:40 | NUR ---
ED Nurse Note: pt ambulated to restroom accompanied by RN. no ss of distress noted. Pt aao x 4 with steady gait. UA sent to lab
[2019-12-11 21:43] LABS: ANION GAP 14 mmol/L (5-15); BLOOD UREA NITROGEN 8 mg/dL (7-18); CARBON DIOXIDE 20 MMOL/L (21-32); CHLORIDE 103 MMOL/L (98-107); CREATININE 0.7 MG/DL (0.55-1.30); POTASSIUM 3.8 MMOL/L (3.5-5.1); SODIUM 137 MMOL/L (136-145)
[2019-12-11 21:54] LABS: ALANINE AMINOTRANSFERASE 74 U/L (12-78); ALBUMIN 3.7 G/DL (3.4-5.0); ALBUMIN/GLOBULIN RATIO 0.8 (1.0-2.7); ALKALINE PHOSPHATASE 72 U/L (46-116); ASPARTATE AMINO TRANSFERASE 61 U/L (15-37); BILIRUBIN,TOTAL 0.8 MG/DL (0.2-1.0)
[2019-12-11 21:55] LABS: APPEARANCE,URINE CLEAR; BILIRUBIN, URINE NEGATIVE (NEGATIVE); COLOR,URINE PALE YELLOW; GLUCOSE, URINE (UA) NEGATIVE (NEGATIVE); KETONES,URINE NEGATIVE (NEGATIVE); LEUKOCYTE ESTERASE ,URINE NEGATIVE (NEGATIVE); NITRITE,URINE NEGATIVE (NEGATIVE); PH,URINE 5 (4.5-8.0); PROTEIN,URINE NEGATIVE (NEGATIVE); UROBILINOGEN,URINE NORMAL MG/DL (0.0-1.0)
[2019-12-11] MEDS ORDERED: Albuterol/Ipratropium 3ml neb HHN ONE (22:15)
--- NOTE | 2019-12-11 22:15 | NUR ---
ED Nurse Note: ERMD at bedside
[2019-12-11 22:18] VITALS: BP 152/92
--- NOTE | 2019-12-11 22:25 | NUR ---
ED Nurse Note: Rt at bedside
--- NOTE | 2019-12-11 22:35 | Emergency Room Report ---
History of Present Illness General Chief Complaint: Upper Respiratory Illness Source: Patient Present Illness HPI Patient was endorsed to me by for increased cough and difficulty with breathing. See his note for full HPI. Patient reports having prior history of hypertension and states she had recently run out of her medication. Reports having some increased difficulty breathing over the past few days. She denies prior history of asthma. Prior history of hypertension. Allergies: Coded Allergies: LISINOPRIL (Verified Allergy, Intermediate, 05/04/16) COVID-19 Screening Contact w/high risk pt: No Recent Travel to affected area: No Experienced COVID-19 symptoms?: No Patient History Past Medical History: see triage record Last Menstrual Period: 11/23/2019 Now: No Reviewed Nursing Documentation: PMH: Agreed; PSxH: Agreed Nursing Documentation-PMH Hx Hypertension: Yes Hx Asthma: Yes Hx Diabetes: No Hx Cancer: No Hx Gastrointestinal Problems: No Hx Dialysis: No - KIDNEY STONES Hx Neurological Problems: No Hx Cerebrovascular Accident: Yes - 04/30 Hx Seizures: No Review of Systems All Other Systems: negative except mentioned in HPI Physical Exam Vital Signs Date Time Temp Pulse Resp B/P (MAP) Pulse Ox O2 Delivery O2 Flow Rate FiO2 12/11/19 19:50 98.4 90 18 162/96 (118) 94 Room Air 12/11/19 20:38 21 Sp02 EP Interpretation: reviewed, normal General Appearance: normal inspection, alert, GCS 15, mild distress, obese Head: atraumatic ENT: normal ENT inspection, normal voice, pharyngeal erythema Neck: normal inspection, full range of motion, supple, no bony tend Respiratory: normal inspection, lungs clear, normal breath sounds, no respiratory distress, no retraction, no wheezing Cardiovascular #1: regular rate, rhythm, no edema Gastrointestinal: normal inspection, normal bowel sounds, non tender, soft, no guarding, no hernia Genitourinary: no CVA tenderness Musculoskeletal: normal inspection, back normal, normal range of motion Neurologic: alert, motor strength/tone normal, 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 Differential diagnosis include was not limited to pneumonia, asthma, bronchitis, coronavirus among others. Because of complexity of patient's case laboratory tests and imaging studies were ordered. Chest x-ray 1 view read by radiology showed normal cardiac size without definite infiltrate. EKG interpreted by me showed normal sinus rhythm without acute ST or T wave changes. Laboratory testing was unremarkable. Patient had been given steroids as well as breathing treatments prior to my arrival. She was given further breathing treatments. Patient was advised that she needed to continue self quarantine. Patient was advised to return if worse. Patient is advised to return if any worsening condition or if any changes in status that are concerning. This report is dictated with [employer] worship pastor software which may occasionally lead to discrepancies related to use of this software. Labs Test 12/11/19 21:10 White Blood Count 10.8 K/UL (4.8-10.8) Red Blood Count 5.30 M/UL (4.20-5.40) Hemoglobin 16.0 G/DL (12.0-16.0) Hematocrit 49.9 % (37.0-47.0) Mean Corpuscular Volume 94 FL (80-99) Mean Corpuscular Hemoglobin 30.2 PG (27.0-31.0) Mean Corpuscular Hemoglobin Concent 32.1 G/DL (32.0-36.0) Red Cell Distribution Width 12.5 % (11.6-14.8) Platelet Count 278 K/UL (150-450) Mean Platelet Volume 6.9 FL (6.5-10.1) Neutrophils (%) (Auto) 50.9 % (45.0-75.0) Lymphocytes (%) (Auto) 39.3 % (20.0-45.0) Monocytes (%) (Auto) 5.3 % (1.0-10.0) Eosinophils (%) (Auto) 2.4 % (0.0-3.0) Basophils (%) (Auto) 2.1 % (0.0-2.0) Urine Color Pale yellow Urine Appearance Clear Urine pH 5 (4.5-8.0) Urine Specific [place] 1.010 (1.005-1.035) Urine Protein Negative (NEGATIVE) Urine Glucose (UA) Negative (NEGATIVE) Urine Ketones Negative (NEGATIVE) Urine Blood Negative (NEGATIVE) Urine Nitrite Negative (NEGATIVE) Urine Bilirubin Negative (NEGATIVE) Urine Urobilinogen Normal MG/DL (0.0-1.0) Urine Leukocyte Esterase Negative (NEGATIVE) Sodium Level 137 MMOL/L (136-145) Potassium Level 3.8 MMOL/L (3.5-5.1) Chloride Level 103 MMOL/L (98-107) Carbon Dioxide Level 20 MMOL/L (21-32) Anion Gap 14 mmol/L (5-15) Blood Urea Nitrogen 8 mg/dL (7-18) Creatinine 0.7 MG/DL (0.55-1.30) Estimat Glomerular Filtration Rate > 60 mL/min (>60) Glucose Level 148 MG/DL (74-106) Calcium Level 9.0 MG/DL (8.5-10.1) Total Bilirubin 0.8 MG/DL (0.2-1.0) Aspartate Amino Transf (AST/SGOT) 61 U/L (15-37) Alanine Aminotransferase (ALT/SGPT) 74 U/L (12-78) Alkaline Phosphatase 72 U/L (46-116) Troponin I 0.003 ng/mL (0.000-0.056) Pro-B-Type Natriuretic Peptide 20 pg/mL (0-125) Total Protein 8.1 G/DL (6.4-8.2) Albumin 3.7 G/DL (3.4-5.0) Globulin 4.4 g/dL Albumin/Globulin Ratio 0.8 (1.0-2.7) EKG Diagnostic Results Rate: normal Rhythm: NSR ST Segments: no acute changes Last Vital Signs Date Time Temp Pulse Resp B/P (MAP) Pulse Ox O2 Delivery O2 Flow Rate FiO2 12/11/19 22:29 120 20 100 Room Air 21 116 20 98 12/11/19 22:18 98.5 152/92 Status: improved Disposition: HOME, SELF-CARE Condition: Stable Scripts Prednisone* (PREDNISONE*) 20 Mg Tablet 40 MG ORAL DAILY, #10 TAB Prov: Ankush Cristina MD 12/11/19 Albuterol Sulfate* (ALBUTEROL SULFATE MDI*) 8.5 Gm Hfa.aer.ad 2 PUFF INH Q6H, #1 EA 0 Refills Prov: Ankush Cristina MD 12/11/19 Amoxicillin* (AMOXIL*) 500 Mg Capsule 500 MG ORAL THREE TIMES A DAY, #21 CAP Prov: Ankush Cristina MD 12/11/19 Ankush Cristina MD Dec 11, 2019 22:35
[2019-12-11] MEDS ORDERED: ALBUTEROL SULF8.5 GM INH (23:01)
[2019-12-11] MEDS ORDERED: PREDNISONE20 MG ORAL (23:01)
[2019-12-11] MEDS ORDERED: AMOXICILLIN500 MG ORAL (23:01)
[2019-12-11 23:07] VITALS: BP 150/90
--- NOTE | 2019-12-11 23:07 | NUR ---
ER DISCHARGE NOTE: Patient is cleared to be discharged home per ERMD, pt is aox4, on room air, with stable vital signs. pt was given dc and prescription instructions, pt was able to verbalize understanding, pt id band and iv site removed without complications. pt is able to ambulate with steady gait. pt took all belongings.
--- NOTE | 2019-12-17 21:32 | Emergency Room Report ---
History of Present Illness General Chief Complaint: Upper Respiratory Illness Source: Patient Present Illness HPI 49-year-old female presents ED for evaluation. Complaining of cough and congestion and shortness of breath. Was states she was seen here where for similar symptoms. Was given breathing treatments and states that she improved. States that her symptoms never went away completely. States she is got a productive cough with yellowish phlegm. Notes wheezing. Denies fevers or chills. Denies sick contacts or recent travel. Vaccinations up-to-date. No other aggravating relieving factors. Denies any other associated symptoms Allergies: Coded Allergies: LISINOPRIL (Verified Allergy, Intermediate, 05/04/16) COVID-19 Screening Contact w/high risk pt: No Recent Travel to affected area: No Experienced COVID-19 symptoms?: No Patient History Past Medical History: CVA/TIA Past Surgical History: none Pertinent Family History: none Social History: Denies: smoking, alcohol use, drug use Last Menstrual Period: 11/23/2019 Now: No Immunizations: UTD Reviewed Nursing Documentation: PMH: Agreed; PSxH: Agreed Nursing Documentation-PMH Hx Hypertension: Yes Hx Asthma: Yes Hx Diabetes: No Hx Cancer: No Hx Gastrointestinal Problems: No Hx Dialysis: No - KIDNEY STONES Hx Neurological Problems: No Hx Cerebrovascular Accident: Yes - 04/30 Hx Seizures: No Review of Systems All Other Systems: negative except mentioned in HPI Physical Exam Sp02 EP Interpretation: reviewed, normal General Appearance: no apparent distress, alert, GCS 15, non-toxic Head: normocephalic, atraumatic Eyes: bilateral eye normal inspection, bilateral eye PERRL ENT: hearing grossly normal, normal pharynx, no angioedema, normal voice Neck: full range of motion, supple/symm/no masses Respiratory: chest non-tender, normal breath sounds, speaking full sentences, wheezing Cardiovascular #1: regular rate, rhythm, no edema Cardiovascular #2: 2+ carotid (R), 2+ carotid (L), 2+ radial (R), 2+ radial (L) , 2+ dorsalis pedis (R), 2+ dorsalis pedis (L) Gastrointestinal: normal bowel sounds, non tender, soft, non-distended, no guarding, no rebound Rectal: deferred Genitourinary: normal inspection, no CVA tenderness Musculoskeletal: back normal, normal range of motion, gait/station normal, non- tender Neurologic: alert, motor strength/tone normal, oriented x3, sensory intact, responsive, speech normal Psychiatric: judgement/insight normal, memory normal, mood/affect normal, no suicidal/homicidal ideation Reflexes: 3+ bicep (R), 3+ bicep (L), 3+ tricep (R), 3+ tricep (L), 3+ knee (R) , 3+ knee (L) Skin: no rash Lymphatic: no adenopathy Medical Decision Making Diagnostic Impression: Primary Impression: Respiratory infection EKG Diagnostic Results Rate: normal Rhythm: NSR ST Segments: no acute changes ASA given to the pt in ED: No Rhythm Strip Diag. Results EP Interpretation: yes Rhythm: NSR, no PVC's, no ectopy Condition: Stable Signed Out To: Dr Jonnie Zepeda Prednisone* (PREDNISONE*) 20 Mg Tablet 40 MG ORAL DAILY, #10 TAB Prov: Ankush Cristina MD 12/11/19 Albuterol Sulfate* (ALBUTEROL SULFATE MDI*) 8.5 Gm Hfa.aer.ad 2 PUFF INH Q6H, #1 EA 0 Refills Prov: Ankush Cristina MD 12/11/19 Amoxicillin* (AMOXIL*) 500 Mg Capsule 500 MG ORAL THREE TIMES A DAY, #21 CAP Prov: Ankush Cristina MD 12/11/19 Departure Forms: Return to Work Return to Work in (Days): 7 Patient Instructions: Tonsillitis, Viral Respiratory Infection Basilio Temple MD Dec 17, 2019 21:32
== END 2019-12-11 23:07 | disposition home or self-care (01) ==
LOC: EDBD 20:01 → EMR 20:34
DX: J98.8 Other specified respiratory disorders (principal); R06.00 Dyspnea, unspecified; R05 Cough; I10 Essential (primary) hypertension; Z86.73 Personal history of transient ischemic attack (TIA), and cerebral infarction without residual deficits; Z87.442 Personal history of urinary calculi; Z88.8 Allergy status to other drugs, medicaments and biological substances; E66.9 Obesity, unspecified
CPT/HCPCS: 36415; 71045; 80053; 81003; 83880; 84484; 85025; 86710; 93005; 96360; 99284; J7030; J7512; J7620

== ENCOUNTER 2020-11-25 17:18 | Observation (INO) | payer SELFPAY ==
[~2020-11-25] VITALS: Ht 165.1 cm; Wt 94.3 kg
[~2020-11-25 17:18] MED LIST changes: +PREDNISONE20 MG ORAL
--- NOTE | 2020-11-25 17:45 | Emergency Room Report ---
History of Present Illness General Chief Complaint: Dizziness Source: Patient Present Illness HPI Patient is a 50-year-old female presents for increased difficulty with breathing. Onset of symptoms over the past 2 days intermittently. Reports having increased heartburn. Prior history of hypertension as well as previous heart attack. Reports having taken Coreg in the past but has not been on this for some time. Had previously also been on hydrochlorothiazide. Denies any fever. Reports having nonproductive cough. Had taken Primatene Mist without improvement. Had also been taking Yojana-[place].Patient denies being a smoker in the past. Allergies: Coded Allergies: LISINOPRIL (Verified Allergy, Intermediate, 05/04/16) COVID-19 Screening Contact w/high risk pt: No Recent Travel to affected area: No Experienced COVID-19 symptoms?: No COVID-19 Testing performed [employer] WARMER: No COVID-19 Testing Source: Never been tested Patient History Past Medical History: see triage record Past Surgical History: unable to obtain Pertinent Family History: unable to obtain Last Menstrual Period: October Now: No Reviewed Nursing Documentation: PMH: Agreed; PSxH: Agreed Nursing Documentation-PMH Hx Hypertension: Yes Hx Asthma: Yes Hx Diabetes: No Hx Cancer: No Hx Gastrointestinal Problems: No Hx Dialysis: No - KIDNEY STONES Hx Neurological Problems: No Hx Cerebrovascular Accident: Yes - 04/30 Hx Seizures: No Review of Systems All Other Systems: negative except mentioned in HPI Physical Exam Vital Signs Date Time Temp Pulse Resp B/P (MAP) Pulse Ox O2 Delivery O2 Flow Rate FiO2 11/25/20 17:30 97.9 77 20 184/105 (131) 96 Room Air Sp02 EP Interpretation: reviewed, normal General Appearance: normal inspection, well appearing, no apparent distress, alert, GCS 15, obese, Chronically Ill Head: atraumatic ENT: normal ENT inspection, hearing grossly normal, normal voice Neck: normal inspection, full range of motion, supple, no bony tend Respiratory: normal inspection, lungs clear, normal breath sounds, no respiratory distress, no retraction, no wheezing Cardiovascular #1: regular rate, rhythm, no edema Gastrointestinal: normal inspection, normal bowel sounds, non tender, soft, no guarding, no hernia Genitourinary: no CVA tenderness Musculoskeletal: normal inspection, back normal, normal range of motion Neurologic: alert, motor strength/tone normal, 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 Differential diagnosis include was not limited to myocardial infarction, pulmonary embolism, coronavirus infection, pneumonia among others. Because of complexity of patient's case laboratory tests and imaging studies were ordered. Patient's EKG showed some signs that are concerning for possible ischemia. Patient was given aspirin. She is also given Pepcid. Patient's previous EKGs were reviewed and she was noted to have some similar T wave inversions which were less pronounced.Patient's laboratory testing showed evidence of lactic acidosis. Patient was given medications for significant blood pressure elevation including Coreg. She reports having improvement in her symptoms. She was also given Mylanta due to burning sensation to her chest. Patient's initial troponin was negative. EKG showed some evidence of possible cardiac disease and patient will be hospitalized for further evaluation. Dr. Magan Can was contacted for inpatient management. Labs Test 11/25/20 17:46 11/25/20 18:00 11/25/20 18:23 11/25/20 18:40 Urine Color Pale yellow Urine Appearance Clear Urine pH 7 (4.5-8.0) Urine Specific [place] 1.015 (1.005-1.035) Urine Protein Negative (NEGATIVE) Urine Glucose (UA) Negative (NEGATIVE) Urine Ketones Negative (NEGATIVE) Urine Blood 2+ (NEGATIVE) Urine Nitrite Negative (NEGATIVE) Urine Bilirubin Negative (NEGATIVE) Urine Urobilinogen 1 MG/DL (0.0-1.0) Urine Leukocyte Esterase Negative (NEGATIVE) Urine RBC 0-2 /HPF (0 - 2) Urine WBC 0-2 /HPF (0 - 2) Urine Squamous Epithelial Cells Occasional /LPF Urine Amorphous Sediment Few /LPF (NONE) Urine Bacteria Few /HPF (NONE) White Blood Count 8.3 K/UL (4.8-10.8) Red Blood Count 5.43 M/UL (4.20-5.40) Hemoglobin 14.5 G/DL (12.0-16.0) Hematocrit 50.0 % (37.0-47.0) Mean Corpuscular Volume 92 FL (80-99) Mean Corpuscular Hemoglobin 26.7 PG (27.0-31.0) Mean Corpuscular Hemoglobin Concent 29.0 G/DL (32.0-36.0) Red Cell Distribution Width 13.6 % (11.6-14.8) Platelet Count 336 K/UL (150-450) Mean Platelet Volume 6.4 FL (6.5-10.1) Neutrophils (%) (Auto) 58.4 % (45.0-75.0) Lymphocytes (%) (Auto) 34.3 % (20.0-45.0) Monocytes (%) (Auto) 4.7 % (1.0-10.0) Eosinophils (%) (Auto) 1.0 % (0.0-3.0) Basophils (%) (Auto) 1.5 % (0.0-2.0) Prothrombin Time 10.1 SEC (9.30-11.50) Prothromb Time International Ratio 0.9 (0.9-1.1) Activated Partial Thromboplast Time 23 SEC (23-33) D-Dimer 0.20 mg/L FEU (0.00-0.49) Sodium Level 140 MMOL/L (136-145) Potassium Level 4.1 MMOL/L (3.5-5.1) Chloride Level 103 MMOL/L (98-107) Carbon Dioxide Level 23 MMOL/L (21-32) Anion Gap 14 mmol/L (5-15) Blood Urea Nitrogen 9 mg/dL (7-18) Creatinine 0.8 MG/DL (0.55-1.30) Estimat Glomerular Filtration Rate > 60 mL/min (>60) Glucose Level 123 MG/DL (74-106) Calcium Level 9.3 MG/DL (8.5-10.1) Phosphorus Level 4.4 MG/DL (2.5-4.9) Magnesium Level 2.2 MG/DL (1.8-2.4) Ferritin 299 NG/ML (8-388) Total Bilirubin 1.4 MG/DL (0.2-1.0) Direct Bilirubin 0.2 MG/DL (0.0-0.3) Aspartate Amino Transf (AST/SGOT) 87 U/L (15-37) Alanine Aminotransferase (ALT/SGPT) 89 U/L (12-78) Alkaline Phosphatase 80 U/L (46-116) Lactate Dehydrogenase 260 U/L (81-234) Total Creatine Kinase 149 U/L (26-308) Creatine Kinase MB 0.9 NG/ML (0.0-3.6) Creatine Kinase MB Relative Index 0.6 Troponin I 0.003 ng/mL (0.000-0.056) C-Reactive Protein, Quantitative 1.4 mg/dL (0.00-0.90) Pro-B-Type Natriuretic Peptide 40 pg/mL (0-125) Total Protein 7.9 G/DL (6.4-8.2) Albumin 3.6 G/DL (3.4-5.0) Globulin 4.3 g/dL Albumin/Globulin Ratio 0.8 (1.0-2.7) Lipase 175 U/L (73-393) POC Whole Blood Glucose 112 MG/DL (74-106) Lactic Acid Level 2.50 mmol/L (0.66-2.22) EKG Diagnostic Results Rate: normal Rhythm: NSR ST Segments: other - EKG interpreted by me showed normal sinus rhythm with a rate of 76 with slight QT prolongation as well as T wave inversion in the precordial leads. Last Vital Signs Date Time Temp Pulse Resp B/P (MAP) Pulse Ox O2 Delivery O2 Flow Rate FiO2 11/25/20 17:30 97.9 77 20 184/105 (131) 96 Room Air Status: improved Disposition: PLACE IN OBSERVATION Condition: Stable Ankush Cristina MD Nov 25, 2020 17:45
[2020-11-25] MEDS ORDERED: Carvedilol 12.5mg tab ORAL ONE (18:00)
[2020-11-25 18:01] LABS: APPEARANCE,URINE CLEAR; BILIRUBIN, URINE NEGATIVE (NEGATIVE); COLOR,URINE PALE YELLOW; GLUCOSE, URINE (UA) NEGATIVE (NEGATIVE); KETONES,URINE NEGATIVE (NEGATIVE); LEUKOCYTE ESTERASE ,URINE NEGATIVE (NEGATIVE); NITRITE,URINE NEGATIVE (NEGATIVE); PH,URINE 7 (4.5-8.0); PROTEIN,URINE NEGATIVE (NEGATIVE); UROBILINOGEN,URINE 1 MG/DL (0.0-1.0)
[2020-11-25 18:08] LABS: BASOPHILS % (AUTO) 1.5 % (0.0-2.0); HEMOGLOBIN 14.5 G/DL (12.0-16.0); LYMPHOCYTES % (AUTO) 34.3 % (20.0-45.0); MEAN CORPUSCULAR VOLUME 92 FL (80-99); MONOCYTES % (AUTO) 4.7 % (1.0-10.0); NEUTROPHILS % (AUTO) 58.4 % (45.0-75.0); PLATELET COUNT 336 K/UL (150-450); RED BLOOD COUNT 5.43 M/UL (4.20-5.40); RED CELL DISTRIBUTION WIDTH 13.6 % (11.6-14.8); WHITE BLOOD COUNT 8.3 K/UL (4.8-10.8)
[2020-11-25] MEDS ORDERED: Aspirin Baby 81mg ORAL ONE (18:15)
[2020-11-25 18:29] VITALS: BP 179/89
[2020-11-25 18:31] LABS: INR 0.9 (0.9-1.1)
--- NOTE | 2020-11-25 18:32 | NUR ---
pt arrives to ER with complaints of chest pain . pt describes pain as burning sensation localized in center of chest. pt states history of CAD, htn, and DM. PT placed on ekg monitor.
--- NOTE | 2020-11-25 18:43 | NUR ---
all ED orders completed at this time.
[2020-11-25 18:45] LABS: ALANINE AMINOTRANSFERASE 89 U/L (12-78); ALBUMIN 3.6 G/DL (3.4-5.0); ALBUMIN/GLOBULIN RATIO 0.8 (1.0-2.7); ALKALINE PHOSPHATASE 80 U/L (46-116); ANION GAP 14 mmol/L (5-15); ASPARTATE AMINO TRANSFERASE 87 U/L (15-37); BILIRUBIN,TOTAL 1.4 MG/DL (0.2-1.0); BLOOD UREA NITROGEN 9 mg/dL (7-18); CALCIUM 9.3 MG/DL (8.5-10.1); CARBON DIOXIDE 23 MMOL/L (21-32); CHLORIDE 103 MMOL/L (98-107); CKMB 0.9 NG/ML (0.0-3.6); CREATINE KINASE 149 U/L (26-308); CREATININE 0.8 MG/DL (0.55-1.30); FERRITIN 299 NG/ML (8-388); LACTATE DEHYDROGENASE 260 U/L (81-234); PHOSPHORUS 4.4 MG/DL (2.5-4.9); POTASSIUM 4.1 MMOL/L (3.5-5.1); SODIUM 140 MMOL/L (136-145)
[2020-11-25 18:47] LABS: BILIRUBIN,DIRECT 0.2 MG/DL (0.0-0.3)
[2020-11-25 19:17] VITALS: BP 183/86
--- NOTE | 2020-11-25 19:17 | NUR ---
pt still complains of chest burn
--- NOTE | 2020-11-25 22:15 | NUR ---
Pt ambulated to restroom with steady gait, no SS of distress noted. Pt given socks for warmth. Will continue to monitor.
--- NOTE | 2020-11-25 22:37 | NUR ---
NURSE NOTES: Report received from KADEN Herzog. Awaiting for patient's arrival.
--- NOTE | 2020-11-25 23:11 | NUR ---
Pte was admitted to the floor report given to the nurse Caryn. All belongs were packaged and sent them with the pte. Pacient left ER in stable condition accompianed of jossie ALFONSO.
[2020-11-25 23:15] VITALS: BP 146/65
--- NOTE | 2020-11-25 23:15 | NUR ---
NURSE NOTES: Received patient from E.R via [place] in stable condition. Alert and oriented x 4. Oriented to room and telemetry unit. Belonging list checked and verified with RESTAURANT HOURLY MANAGER and the patient. 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 IV site is on left hand g-20 saline locked that is patent and intact. Safety measures are in place, bed in lowest and locked position, side rails up x 2, call light button and bedside table within reach, instructed to call for any assistance needed. Will call MD for admission orders.
--- NOTE | 2020-11-26 00:30 | NUR ---
NURSE NOTES: Orders received from Dr. Can, will carry out.
[2020-11-26 04:00] VITALS: BP 140/70
--- NOTE | 2020-11-26 04:30 | NUR ---
NURSE NOTES: 12L EKG done and attached to chart, showed Sinus rhythm with nonspecific T wave abnormality.
--- NOTE | 2020-11-26 07:12 | NUR ---
NURSE HAND-OFF REPORT: Important Events on Shift: Patient has been resting the whole day and no episode of chest pain reported. Patient Status: Patient is awake on bed in stable condition, plan of care endorsed. Diet: Cardiac diet Pending Orders: Troponin @ 1400 & 2200 Pending Results/Labs:AM labs Pending MD notification:none Latest Vital Signs: Temperature 97.7 , Pulse 67 , B/P 140 /70 , Respiratory Rate 18 , O2 SAT 97 , Room Air, O2 Flow Rate . Vital Sign Comment: stable EKG Rhythm: Sinus Rhythm Rhythm change?: N MD Notified?: - MD Response: Latest Parker Fall Score: 20 Fall Risk: Low Risk Safety Measures: Call light Within Reach, Bed Alarm , Side Rails Side Rails x2, Bed position Low and Locked. Fall Precautions: Patient Fall Education Report given to KADEN Ramires.
--- NOTE | 2020-11-26 07:57 | NUR ---
NURSE NOTES: Received patient report from KADEN Rubin. Patient is AO x4 awake and able to make needs known. Patient shows no signs of distress or pain at the time. Patient is on room air and shows no signs of respiratory distress. IV is intact and patent. There are no signs of erythema, infiltration, or bleeding at the time. Bed is in the lowest position, call light is within reach, side rails up x3. Will continue to monitor.
[2020-11-26 08:00] VITALS: BP 139/60
[2020-11-26] MEDS: Aspirin Baby 81mg ORAL SCH (08:51)
[2020-11-26] MEDS: Heparin 5000 units/ml inj SUBQ SCH ×2 (08:52→20:38)
--- NOTE | 2020-11-26 10:11 | Cardiac Electrophysiology PN ---
Subjective Subjective [id number] Objective Last 24 Hour Vital Signs Date Time Temp Pulse Resp B/P (MAP) Pulse Ox O2 Delivery O2 Flow Rate FiO2 11/26/20 08:00 97.7 67 18 139/60 (86) 97 11/26/20 04:00 67 11/26/20 04:00 97.7 61 18 140/70 (93) 97 11/25/20 23:15 69 11/25/20 23:15 98.1 64 18 146/65 (92) 98 11/25/20 23:11 Room Air 11/25/20 23:08 98.3 77 17 140/89 99 Room Air 11/25/20 19:17 85 18 183/86 100 Room Air 11/25/20 18:29 97.9 20 179/89 96 Room Air 11/25/20 18:08 83 179/89 11/25/20 17:30 97.9 77 20 184/105 (131) 96 Room Air Intake and Output 11/25/20 11/26/20 19:00 07:00 Intake Total 600 ml Balance 600 ml Intake Oral 600 ml # Voids 1 # Bowel Movements 1 Laboratory Tests Test 11/25/20 17:46 11/25/20 18:00 11/25/20 18:23 11/25/20 18:40 Urine Color Pale yellow Urine Appearance Clear Urine pH 7 (4.5-8.0) Urine Specific [place] 1.015 (1.005-1.035) Urine Protein Negative (NEGATIVE) Urine Glucose (UA) Negative (NEGATIVE) Urine Ketones Negative (NEGATIVE) Urine Blood 2+ (NEGATIVE) H Urine Nitrite Negative (NEGATIVE) Urine Bilirubin Negative (NEGATIVE) Urine Urobilinogen 1 MG/DL (0.0-1.0) H Urine Leukocyte Esterase Negative (NEGATIVE) Urine RBC 0-2 /HPF (0 - 2) Urine WBC 0-2 /HPF (0 - 2) Urine Squamous Epithelial Cells Occasional /LPF Urine Amorphous Sediment Few /LPF (NONE) H Urine Bacteria Few /HPF (NONE) White Blood Count 8.3 K/UL (4.8-10.8) Red Blood Count 5.43 M/UL (4.20-5.40) H Hemoglobin 14.5 G/DL (12.0-16.0) Hematocrit 50.0 % (37.0-47.0) H Mean Corpuscular Volume 92 FL (80-99) Mean Corpuscular Hemoglobin 26.7 PG (27.0-31.0) L Mean Corpuscular Hemoglobin Concent 29.0 G/DL (32.0-36.0) L Red Cell Distribution Width 13.6 % (11.6-14.8) Platelet Count 336 K/UL (150-450) Mean Platelet Volume 6.4 FL (6.5-10.1) L Neutrophils (%) (Auto) 58.4 % (45.0-75.0) Lymphocytes (%) (Auto) 34.3 % (20.0-45.0) Monocytes (%) (Auto) 4.7 % (1.0-10.0) Eosinophils (%) (Auto) 1.0 % (0.0-3.0) Basophils (%) (Auto) 1.5 % (0.0-2.0) Prothrombin Time 10.1 SEC (9.30-11.50) Prothromb Time International Ratio 0.9 (0.9-1.1) Activated Partial Thromboplast Time 23 SEC (23-33) D-Dimer 0.20 mg/L FEU (0.00-0.49) Sodium Level 140 MMOL/L (136-145) Potassium Level 4.1 MMOL/L (3.5-5.1) Chloride Level 103 MMOL/L (98-107) Carbon Dioxide Level 23 MMOL/L (21-32) Anion Gap 14 mmol/L (5-15) Blood Urea Nitrogen 9 mg/dL (7-18) Creatinine 0.8 MG/DL (0.55-1.30) Estimat Glomerular Filtration Rate > 60 mL/min (>60) Glucose Level 123 MG/DL (74-106) H Lactic Acid Level 2.60 mmol/L (0.4-2.0) H 2.50 mmol/L (0.66-2.22) H Calcium Level 9.3 MG/DL (8.5-10.1) Phosphorus Level 4.4 MG/DL (2.5-4.9) Magnesium Level 2.2 MG/DL (1.8-2.4) Ferritin 299 NG/ML (8-388) Total Bilirubin 1.4 MG/DL (0.2-1.0) H Direct Bilirubin 0.2 MG/DL (0.0-0.3) Aspartate Amino Transf (AST/SGOT) 87 U/L (15-37) H Alanine Aminotransferase (ALT/SGPT) 89 U/L (12-78) H Alkaline Phosphatase 80 U/L (46-116) Lactate Dehydrogenase 260 U/L (81-234) H Total Creatine Kinase 149 U/L (26-308) Creatine Kinase MB 0.9 NG/ML (0.0-3.6) Creatine Kinase MB Relative Index 0.6 Troponin I 0.003 ng/mL (0.000-0.056) C-Reactive Protein, Quantitative 1.4 mg/dL (0.00-0.90) H Pro-B-Type Natriuretic Peptide 40 pg/mL (0-125) Total Protein 7.9 G/DL (6.4-8.2) Albumin 3.6 G/DL (3.4-5.0) Globulin 4.3 g/dL Albumin/Globulin Ratio 0.8 (1.0-2.7) L Lipase 175 U/L (73-393) POC Whole Blood Glucose 112 MG/DL (74-106) H Test 11/26/20 06:00 Troponin I 0.001 ng/mL (0.000-0.056) Microbiology Date/Time Source Procedure Growth Status 11/25/20 18:09 Nasopharynx SARS-CoV-2 Antigen (Rapid)([facility]) - Final Complete Johann Rojas MD Nov 26, 2020 10:11
[2020-11-26] MEDS ORDERED: Lexiscan 0.4mg/5ml syringe IV SCH (10:15)
--- NOTE | 2020-11-26 11:14 | History and Physical Report ---
DATE OF ADMISSION: 11/25/2020 REASON FOR ADMISSION: Chest pain, dizziness. HISTORY: The patient is a 50-year-old female presents with shortness of breath over the past two days, some heartburn, some history of hypertension. No prior history of coronary artery disease. The patient denies any other significant symptoms. No fevers, chills. No hemoptysis and no significant other risk factors. PAST MEDICAL HISTORY: Hypertension, history of kidney stones, history of questionable CVA in the past. MEDICATIONS: Reviewed. ALLERGIES: Reviewed. SOCIAL HISTORY: Reviewed. PHYSICAL EXAMINATION: GENERAL: A well-developed female, overall comfortable at present. VITAL SIGNS: Reviewed. Blood pressure 140/70, pulse 118, sats 97%. HEENT: Negative. NECK: Supple. LUNGS: Fairly clear and symmetric. CARDIAC: S1, S2. Regular rate and rhythm. ABDOMEN: Soft, nontender. EXTREMITIES: No edema. LABORATORY DATA: Reviewed. Elevated troponin, mildly elevated liver enzymes and mildly elevated C-reactive protein. Hematocrit of 50. D-dimer normal. IMPRESSION: Chest pain, possible acute coronary syndrome, history of hypertension, mild transaminitis, possible fatty liver, possible reflux and dyspepsia. RECOMMENDATION: Serial troponins. Cardiology to see and clear. Consider outpatient stress test. Aspirin for now and Coreg for blood pressure control and we will discuss with district recruiter to discharge planning. Magan Can M.D. DR: CRISTY JOB#: [id number] CC:
[2020-11-26] MEDS ORDERED: Lexiscan 0.4mg/5ml syringe IV PRN (11:15)
[2020-11-26 12:00] VITALS: BP 151/73
--- NOTE | 2020-11-26 12:07 | Diagnostic Imaging Report ---
Indication: Shortness of breath Technique: XRAY Chest 1v Comparison: 12/11/2019 Findings: Heart size and mediastinal contours are within normal limits for AP technique. There is no focal airspace consolidation, pneumothorax or pleural effusion. Degenerative change cervical spine. Osseous structures demonstrate no acute abnormality. Impression: No radiographic evidence of acute cardiopulmonary disease.
--- NOTE | 2020-11-26 12:44 | Consultation ---
DATE OF CONSULTATION: 11/26/2020 CARDIOLOGY CONSULTATION CONSULTING PHYSICIAN: Johann Rojas MD. REFERRING PHYSICIAN: Magan Can MD. REASON FOR CONSULTATION: Chest pain. HISTORY OF PRESENT ILLNESS: The patient is a 50-year-old lady with history of hypertension, who reportedly had myocardial infarction at the age 41 when she had an angiogram at [facility] that did not require any stent. The patient also stated that she had normal coronaries. The patient used to be on Coreg and hydrochlorothiazide, but she does not take it regularly. The patient presented to the emergency room with increasing shortness of breath as well as she has heartburn and chest pain. The patient denies any fever, chills, nausea, or vomiting. The patient was admitted and Cardiology consultation was obtained for further evaluation and management. REVIEW OF SYSTEMS: Negative other than what is mentioned in the history of present illness. PAST MEDICAL HISTORY: As mentioned above. FAMILY HISTORY: Noncontributory. SOCIAL HISTORY: Denies smoking or using drugs. Occasionally drinks alcohol. PHYSICAL EXAMINATION: VITAL SIGNS: Blood pressure in the ER was 184/105, pulse 77, respirations 20. HEAD AND NECK: Shows no JVD or carotid bruit. LUNGS: Clear. CARDIOVASCULAR: Shows regular S1 and S2 with no gallop or murmur. ABDOMEN: Soft. EXTREMITIES: No pitting edema. LABORATORY AND DIAGNOSTIC DATA: Her labs show white count of 8.2, hemoglobin of 14.5, hematocrit of 50, and platelet count is 336. Sodium is 140, potassium 4.1, BUN of 9, creatinine 0.8, and glucose of 123. BNP is 40. Lipase is 175. ASSESSMENT/PLAN: 1. Atypical chest pain. The patient will be ruled out for myocardial infarction. EKG shows sinus rhythm with nonspecific ST-T wave abnormalities. We will get an echocardiogram and schedule the patient for nuclear stress test for further evaluation. 2. Accelerated hypertension. Blood pressure was as high as 180s. Resume Coreg 12.5 mg b.i.d. 3. The patient has history of angiogram nine years ago, but reportedly did not have any blockage at [facility]. Thank you very much for allowing me to participate in the care of this patient. Please do not hesitate to contact me for any questions regarding my evaluation. Johann Rojas M.D. DR: JUAN CARLOS JOB#: [id number] CC:
--- NOTE | 2020-11-26 13:36 | NUR ---
NURSE NOTES: Patient denied being or any chance of being . Patient aware of stress test for tomorrow.
--- NOTE | 2020-11-26 15:19 | NUR ---
NURSE NOTES: Consent signed for stress test for tomorrow.
[2020-11-26 16:00] VITALS: BP 165/86
[2020-11-26] MEDS ORDERED: Nitroglycerin Subl 0.4mg tab SL PRN (17:15)
--- NOTE | 2020-11-26 17:21 | NUR ---
NURSE NOTES: Patient complaining of 5/10 chest pain, says she feels heaviness. Dr. Rojas ordered Nitroglycerine 0.4 SL Q5 min. Given as ordered.
--- NOTE | 2020-11-26 19:15 | NUR ---
NURSE NOTES: Pt report received from Keyla Neal RN. pt remains stable/ asymptomatic. pt is alert and oriented times 4, no change in mentation. pt is showing NSR on the monitor, no abnormalities to HR noted. pt is sating 99% O2, no signs symptom of resp distress noted. pt bed is low, locked, armed, call light within reach, bed rails up times 3. will follow plan of care.
--- NOTE | 2020-11-26 19:47 | NUR ---
NURSE HAND-OFF REPORT: Important Events on Shift:[Patient signed consent for stress test tomorrow. NPO at midnight. ] Patient Status: [Full code] Diet: [Cardiac] Pending Orders: [] Pending Results/Labs:[] Pending MD notification:[] Latest Vital Signs: Temperature 97.7 , Pulse 67 , B/P 165 /86 , Respiratory Rate 18 , O2 SAT 100 , Room Air, O2 Flow Rate . Vital Sign Comment: [] EKG Rhythm: Sinus Rhythm Rhythm change?: N MD Notified?: - MD Response: Latest Parker Fall Score: 20 Fall Risk: Low Risk Safety Measures: Call light Within Reach, Bed Alarm Zone 2, Side Rails Side Rails x2, Bed position Low and Locked. Fall Precautions: Patient Fall Education Report given to [NA].
[2020-11-26 20:00] VITALS: BP 144/53
[2020-11-26] MEDS: Carvedilol 6.25mg Tab ORAL SCH (20:36)
--- NOTE | 2020-11-26 22:07 | NUR ---
NURSE NOTES: PTs PM meds passed. no change in condition.
[2020-11-27] VITALS: BP 140/55
[2020-11-27 04:00] VITALS: BP 149/78
--- NOTE | 2020-11-27 07:00 | NUR ---
NURSE NOTES: Report received from KADEN Balderas. Upon assessment pt is sleeping in bed, A/Ox4, PERRLA. 0/10 pain. 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 NPO status for Stress Test today. NSR on monitor. Vitals WNL. Bed kept in lowest and locked position. Call light within reach. Side rails up x2. Will monitor.
--- NOTE | 2020-11-27 07:02 | NUR ---
NURSE HAND-OFF REPORT: Important Events on Shift:[NA] Patient Status: [stable] Diet: [per doctor order] Pending Orders: [NA] Pending Results/Labs:[NA] Pending MD notification:[NA] Latest Vital Signs: Temperature 98.0 , Pulse 63 , B/P 149 /78 , Respiratory Rate 20 , O2 SAT 97 , Room Air, O2 Flow Rate . Vital Sign Comment: [stable] EKG Rhythm: Sinus Rhythm Rhythm change?: N MD Notified?: - MD Response: Latest Parker Fall Score: 20 Fall Risk: Low Risk Safety Measures: Call light Within Reach, Bed Alarm Zone 2, Side Rails Side Rails x2, Bed position Low and Locked. Fall Precautions: Patient Fall Education Report given to [Lauryn Carl RN].
[2020-11-27 08:00] VITALS: BP 146/85
--- NOTE | 2020-11-27 08:00 | NUR ---
NURSE NOTES: Pt off unit for Nuclear Med Stress Test. All PO meds held until further notice. No cardiopulm distress noted.
--- NOTE | 2020-11-27 08:32 | General Progress Note ---
Subjective Allergies: Coded Allergies: LISINOPRIL (Verified Allergy, Intermediate, 05/04/16) Subjective care noted has pain Objective Last 24 Hour Vital Signs Date Time Temp Pulse Resp B/P (MAP) Pulse Ox O2 Delivery O2 Flow Rate FiO2 11/27/20 08:00 97.1 63 16 146/85 (105) 98 11/27/20 04:00 62 11/27/20 04:00 98.0 63 20 149/78 (101) 97 11/27/20 00:00 98.0 61 20 140/55 (83) 100 11/27/20 00:00 66 11/26/20 21:00 Room Air 11/26/20 20:36 65 156/63 11/26/20 20:00 64 11/26/20 20:00 98.1 59 20 144/53 (83) 100 11/26/20 18:42 97.7 11/26/20 17:18 165/86 11/26/20 16:16 165/86 11/26/20 16:00 97.7 69 18 165/86 (112) 100 11/26/20 16:00 67 11/26/20 12:00 69 11/26/20 12:00 97.9 74 20 151/73 (99) 97 11/26/20 09:00 Room Air Intake and Output 11/26/20 11/27/20 19:00 07:00 Intake Total 360 ml Balance 360 ml Intake Oral 360 ml # Voids 3 Laboratory Tests 11/26/20 15:20: Troponin I 0.007 11/26/20 21:20: Troponin I 0.009 Height (Feet): 5 Height (Inches): 5.00 Weight (Pounds): 208 Objective WDWN NAD clear breath sounds bilaterally without rhonchi or wheeze [id number] without MRG NABS nontender no HSM no CCE nonfocal Assessment/Plan Assessment/Plan: IMPRESSION: Chest pain, possible acute coronary syndrome, history of hypertension, mild transaminitis, possible fatty liver, possible reflux and dyspepsia. PLAN card clearance on tele maintain same dc planning pending further testing impression, plan, and exam edited and reviewed in detail care discussed with Magan Herrera MD Nov 27, 2020 08:32
[2020-11-27] MEDS: Aspirin Baby 81mg ORAL SCH (08:51)
[2020-11-27] MEDS: Carvedilol 6.25mg Tab ORAL SCH (08:51)
[2020-11-27] MEDS: Heparin 5000 units/ml inj SUBQ SCH (08:52)
--- NOTE | 2020-11-27 09:30 | NUR ---
NURSE NOTES: Pt arrived back from [facility] in stable condition.
[2020-11-27 12:00] VITALS: BP 161/66
--- NOTE | 2020-11-27 12:21 | NUR ---
NURSE NOTES: Dr. Camejo at bedside. 12 lead cardiac monitoring, josey initiated. Nuclear med at bedside. Says she can now have lunch and will go down for part two of stress test later.
--- NOTE | 2020-11-27 15:33 | Diagnostic Imaging Report ---
INDICATION: Chest pain. Comparison: None available. TECHNIQUE: Using a one day protocol, the patient was injected IV with 30 mCi of Myoview. Thirty minutes later, resting gated SPECT images were acquired. Through a previously established IV site, using a bolus injection chemical stress infusion protocol, the patient was given 0.4 mg of Lexiscan followed by a bolus injection of 10 mCi of Myoview. The patient was monitored until vital signs returned acceptable levels. Gated stress SPECT supine images were acquired at 30 minutes post Tc Cardiolite injection. The images were processed and displayed in the short axis, vertical and horizontal long axis, and compared with resting images. The gated stress supine images were additionally processed and evaluated for myocardial wall motion and global left ventricular ejection fraction. Patient unable to tolerate prone imaging. Only supine images are presented. FINDINGS: There is a small photopenic area noted in the anterior wall toward the cardiac apex. This is fixed on both stress and resting images compatible with a small fixed infarct. No significant reversible ischemia demonstrated. The left ventricular ejection fraction is 68 %, which is within normal limits. End-diastolic and end-systolic volumes of 91 mL and 29 mL respectively were noted. IMPRESSION: A FIXED PHOTOPENIC AREA NOTED IN THE ANTERIOR WALL TOWARD THE CARDIAC APEX COMPATIBLE WITH AN OLD INFARCT. NO REVERSIBLE ISCHEMIA DEMONSTRATED. EJECTION FRACTION IS 68%. * Please note that this study is performed without the benefit of attenuation correction. Diaphragmatic creep attenuation artifacts can mimic an inferior wall abnormality.
[2020-11-27 16:00] VITALS: BP 143/85
--- NOTE | 2020-11-27 16:30 | NUR ---
NURSE NOTES: Dr. Rojas at bedside. Gave pt scrip for Coreg 6.25 mg BID PO. Pt states, "she needs a script for Albuterol and Work leave slip." No distress noted.
--- NOTE | 2020-11-27 16:37 | Cardiac Electrophysiology PN ---
Assessment/Plan Assessment/Plan 1. Atypical chest pain. Ruled out for myocardial infarction. EKG shows sinus rhythm with nonspecific ST-T wave abnormalities. Echo Nl EF. Nuclear stress test showed no ischemia. OK to DC' 2. Accelerated hypertension. On Coreg 12.5 mg b.i.d. 3. The patient has history of angiogram nine years ago, but reportedly did not have any blockage at [facility]. ALEX RN OK to DC Subjective Subjective Stress test nonischemic. BP better Objective Last 24 Hour Vital Signs Date Time Temp Pulse Resp B/P (MAP) Pulse Ox O2 Delivery O2 Flow Rate FiO2 11/27/20 12:00 56 11/27/20 12:00 97.9 60 18 161/66 (97) 98 11/27/20 09:00 Room Air 11/27/20 08:51 60 146/85 11/27/20 08:00 69 11/27/20 08:00 97.1 63 16 146/85 (105) 98 11/27/20 04:00 62 11/27/20 04:00 98.0 63 20 149/78 (101) 97 11/27/20 00:00 98.0 61 20 140/55 (83) 100 11/27/20 00:00 66 11/26/20 21:00 Room Air 11/26/20 20:36 65 156/63 11/26/20 20:00 64 11/26/20 20:00 98.1 59 20 144/53 (83) 100 11/26/20 18:42 97.7 11/26/20 17:18 165/86 Intake and Output 11/26/20 11/27/20 19:00 07:00 Intake Total 360 ml Balance 360 ml Intake Oral 360 ml # Voids 3 Laboratory Tests Test 11/26/20 21:20 Troponin I 0.009 ng/mL (0.000-0.056) Microbiology Date/Time Source Procedure Growth Status 11/25/20 18:25 Blood Blood Culture - Preliminary NO GROWTH AFTER 24 HOURS Resulted 11/25/20 18:20 Blood Blood Culture - Preliminary NO GROWTH AFTER 24 HOURS Resulted 11/25/20 18:09 Nasopharynx SARS-CoV-2 Antigen (Rapid)(ORQUIDEA) - Final Complete Objective HEAD AND NECK: Shows no JVD or carotid bruit. LUNGS: Clear. CARDIOVASCULAR: Shows regular S1 and S2 with no gallop or murmur. ABDOMEN: Soft. EXTREMITIES: No pitting edema. Johann Rojas MD Nov 27, 2020 16:37
--- NOTE | 2020-11-27 18:11 | NUR ---
NURSE NOTES: Pt discharged at 1750 per MD orders. Pt education initiated. Albuterol prescription faxed to preferred pharmacy at [facility] [address] [facility] , per Dr. Can. Coreg script signed by Dr. Rojas and sent home with patient. Pt was picked up by [facility]ord.
--- NOTE | 2020-11-30 12:49 | Discharge Summary ---
Discharge Summary Discharge Summary _ Date of admission: 11/25/2020 Date of discharge: 11/27/[address] Can History of Present Illness and Brief Hospital Course Ms. Christianson is a 50-year-old female with past medical history of hypertension, asthma, and CVA, who presented to the ED for worsening respiratory distress x2 d ays. EKG showed some signs that were concerning for possible ischemia. Patient was given aspirin, and Pepcid. Patient's previous EKGs were reviewed and she was noted to have some similar T wave inversions which were less pronounced. Patient's laboratory testing showed evidence of lactic acidosis. Patient was given medications for significant blood pressure elevation including Coreg. Patient was also given Mylanta due to burning sensation to her chest. Patient's initial troponin was negative. Patient was admitted to the hospital for further evaluation. 2D echocardiogram showed normal ejection fraction. Nuclear stress test showed no ischemia. Patient had history of angiogram 9 years ago but reportedly did not have any blockage at [facility]. Patient was medically stable for discharge and was discharged home on 11/27/2020. Consultants: Cardiology Dr. Rojas Discharge Condition Stable Discharge Activity Bedrest Discharge Diet Cardiac low-sodium diet Final diagnoses Atypical chest pain Accelerated hypertension History of CVA Hypertension Asthma I have been assigned to dictate discharge summary for this account. I was not involved in the patient's management Tim Lin Nov 30, 2020 12:49
== END 2020-11-27 17:50 | disposition home or self-care (01) ==
LOC: EMR 18:11 → 2E 20:26 → INTOOBSV 20:26 → EDBEDREQ 20:35
DX: R07.89 Other chest pain (principal); R12 Heartburn; I10 Essential (primary) hypertension; Z88.8 Allergy status to other drugs, medicaments and biological substances; Z86.73 Personal history of transient ischemic attack (TIA), and cerebral infarction without residual deficits; J45.909 Unspecified asthma, uncomplicated; E87.2 Acidosis
CPT/HCPCS: 36415; 71045; 78452; 80053; 81003; 82248; 82550; 82553; 82728; 82962; 83605; 83615; 83690; 83735; 83880; 84100; 84484; 85025; 85379; 85610; 85730; 86140; 87040; 93005; 93017; 93306; 99285; A4641; G0378; J1644; J2785